=== PATIENT | male | born 1975 | race Caucasian/White ===

== ENCOUNTER 2017-01-10 16:48 | Emergency (ER) | payer SELFPAY ==
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
[2017-01-10 19:04] VITALS: BP 133/80
== END 2017-01-10 19:05 | disposition home or self-care (01) ==
LOC: UCEAST 16:48
DX: N39.0 Urinary tract infection, site not specified (principal); G82.20 Paraplegia, unspecified; Z87.891 Personal history of nicotine dependence; H91.90 Unspecified hearing loss, unspecified ear
CPT/HCPCS: 81003; 87077; 87086; 87186; 99211; G0463

== ENCOUNTER 2017-03-16 20:55 | Observation (INO) | payer OTHER ==
[2017-03-16] MEDS ORDERED: NS 0.9% 1000 ML* 1,000 ML IV SCH (23:30)
[2017-03-17 00:18] LABS: Hematocrit 37 % (42-52); Hemoglobin 12.4 g/dl (14.0-18.0); Mean Corpuscular HGB Conc 34 g/dl (31-36); Mean Corpuscular Hemoglobin 30 pg (27-31); Mean Corpuscular Volume 89 fL (80-94); Mean Platelet Volume 7 um3 (7.4-10.4); Red Blood Count 4.17 10^6/ul (4.0-5.4); Red Cell Distribution Width 16 % (10.5-15); White Blood Count 11.5 10^3/ul (3.5-10.8)
[2017-03-17 00:29] LABS: Albumin 3.9 g/dL (3.2-5.2); C Reactive Protein 37.64 mg/L (< 5.00); Calcium 9.2 mg/dL (8.6-10.3); EGFR African American 185.5 (>60); EGFR Non-African American 144.3 (>60); Globulin 3.2 g/dL (2-4); Potassium 3.6 mmol/L (3.5-5.0); Total Bilirubin 0.5 mg/dL (0.2-1.0); Total Protein 7.1 g/dL (6.4-8.9)
[2017-03-17] MEDS ORDERED: CYCLOBENZAPRINE 5 MG PO PRN (03:47)
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
[2017-03-17] MEDS ORDERED: Acetaminophen TAB* 325 MG PO PRN (04:03)
[2017-03-17] MEDS ORDERED: Ondansetron INJ* 2 MG/ML VIAL IV PRN (04:22)
[2017-03-17] MEDS ORDERED: CMCS:Melatonin (NF) 3 MG TAB PO PRN (04:22)
[2017-03-17] MEDS ORDERED: Albuterol 2.5 MG/3 ML NEB.SOL* (0.083%) INH PRN (04:22)
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
[2017-03-17] MEDS ORDERED: NS 0.9% 1000 ML* 1,000 ML IV SCH (04:30)
[2017-03-17] MEDS ORDERED: Cyclobenzaprine TAB* 10 MG PO PRN (05:55)
[2017-03-17] MEDS ORDERED: Omeprazole CAP* 20 MG PO SCH (06:00)
[2017-03-17] MEDS: metroNIDAZOLE TAB* 250 MG PO SCH ×2 (06:01→15:25)
[2017-03-17] MEDS: Heparin VIAL(*) 5000 UNITS/ML VIAL (FIVE THOUSAND) SUBCUT SCH ×2 (06:15→15:25)
--- NOTE | 2017-03-17 07:55 | RAD ---
INDICATION: Prior right femoral injury COMPARISON: Pelvis March 16, 2017; right hip fracture November 11, 2015 TECHNIQUE: Noncontrast axial source images were obtained from the iliac crests through the symphysis pubis. FINDINGS: The bony structures are osteopenic. There is an old fracture/deformity of the proximal right femur evidence of prior internal fixation. There is sclerosis and benign-appearing periosteal reactive change. Within the vastus musculature there is extensive soft tissue calcification with adjacent fluid. These findings extend from the iliopsoas musculature to the mid shaft of femur. The visualized intracranial structures are otherwise unremarkable. IMPRESSION: EVIDENCE OF PRIOR PROXIMAL RIGHT FEMORAL FRACTURE WITH INTRAMEDULLARY RODDING. ADJACENT BENIGN PERIOSTEAL REACTION. EXTENSIVE SOFT TISSUE CALCIFICATIONS AND FLUID INVOLVING THE VASTUS AND ILIOPSOAS MUSCULATURE. THIS IS OF UNKNOWN CHRONICITY AND SIGNIFICANCE BUT APPEARS NEW SINCE THE 2015 EXAMINATION.
[2017-03-17 09:48] LABS: Hematocrit 33 % (42-52); Mean Corpuscular HGB Conc 33 g/dl (31-36); Mean Corpuscular Hemoglobin 30 pg (27-31); Mean Corpuscular Volume 88 fL (80-94); Mean Platelet Volume 6 um3 (7.4-10.4); Red Blood Count 3.72 10^6/ul (4.0-5.4); Red Cell Distribution Width 15 % (10.5-15); White Blood Count 8.9 10^3/ul (3.5-10.8)
[2017-03-17 10:04] LABS: EGFR African American 223.1 (>60); EGFR Non-African American 173.5 (>60)
[2017-03-17 17:01] VITALS: BP 132/76
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
== END 2017-03-17 17:25 | disposition home or self-care (01) ==
LOC: ED 20:55 → MED 03-17 03:06 → INTOOBSV 03-17 03:06
PROVIDERS: ADMIT Hospitalist; ATTEND Internal Medicine
DX: L89.154 Pressure ulcer of sacral region, stage 4 (principal); S24.152A Other incomplete lesion at T2-T6 level of thoracic spinal cord, initial encounter; Z87.891 Personal history of nicotine dependence; M19.90 Unspecified osteoarthritis, unspecified site; A04.7 Enterocolitis due to Clostridium difficile; V29.9XXA Motorcycle rider (driver) (passenger) injured in unspecified traffic accident, initial encounter
CPT/HCPCS: 36415; 72192; 80053; 82565; 83605; 84520; 85025; 85610; 85730; 86140; 87040; 99285; A9270-GY; G0378; J1644

== ENCOUNTER 2017-07-25 12:32 | Observation (INO) | payer OTHER ==
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
[2017-07-25] MEDS: NS 0.9% 1000 ML*IV.FLUID IV ONE ×2 (13:26→15:49)
[2017-07-25] MEDS ORDERED: Clindamycin 600 MG IVPREMIX(* 600 MG/50 ML SDV IV ONE (13:41)
[2017-07-25 13:52] LABS: ABS Basophils 0 10^3/ul (0-0.2); ABS Eosinophils 0.1 10^3/ul (0-0.6); ABS Monocytes 0.6 10^3/ul (0-0.8); ABS Neutrophils 10.8 10^3/ul (1.5-7.7); ABS Nucleated RBC 0 10^3/ul; Eosinophil % 0.9 % (0-6); Hematocrit 31 % (42-52); Hemoglobin 10.5 g/dl (14.0-18.0); Lymphocyte % 8.3 % (25-47); Mean Corpuscular HGB Conc 34 g/dl (31-36); Mean Corpuscular Hemoglobin 30 pg (27-31); Mean Corpuscular Volume 88 fL (80-94); Mean Platelet Volume 6 um3 (7.4-10.4); Nucleated Red Blood Cells % 0; Platelet Count 465 10^3/ul (150-450); Red Blood Count 3.53 10^6/ul (4.0-5.4); Red Cell Distribution Width 15 % (10.5-15); White Blood Count 12.6 10^3/ul (3.5-10.8)
[2017-07-25 14:06] LABS: EGFR Non-African American 177.4 (>60)
[2017-07-25 14:14] LABS: INR 1.06 (0.77-1.02)
[2017-07-25 14:44] LABS: Urine Appearance Clear; Urine Blood Negative (Negative); Urine Color Yellow; Urine Ketones Negative (Negative); Urine Protein Negative (Negative); Urine Urobilinogen Negative (Negative)
[2017-07-25] MEDS ORDERED: Acetaminophen TAB* 325 MG PO PRN (15:22)
[2017-07-25] MEDS: Lactobacillus Acidophilu (GG)* 1 CAP CAP PO SCH (19:23)
[2017-07-25] MEDS: Heparin VIAL(*) 5000 UNITS/ML VIAL (FIVE THOUSAND) SUBCUT SCH (21:48)
[2017-07-25] MEDS: Clindamycin 600 MG IVPREMIX(* 600 MG/50 ML SDV IV SCH (23:27)
[2017-07-26] MEDS: Heparin VIAL(*) 5000 UNITS/ML VIAL (FIVE THOUSAND) SUBCUT SCH (06:13)
[2017-07-26 07:40] LABS: ABS Basophils 0 10^3/ul (0-0.2); ABS Eosinophils 0.2 10^3/ul (0-0.6); ABS Lymphocytes 1.2 10^3/ul (1.0-4.8); ABS Monocytes 0.4 10^3/ul (0-0.8); ABS Neutrophils 5.6 10^3/ul (1.5-7.7); ABS Nucleated RBC 0 10^3/ul; Hematocrit 30 % (42-52); Hemoglobin 10.1 g/dl (14.0-18.0); Lymphocyte % 15.7 % (25-47); Mean Corpuscular HGB Conc 34 g/dl (31-36); Mean Corpuscular Hemoglobin 30 pg (27-31); Mean Corpuscular Volume 88 fL (80-94); Mean Platelet Volume 6 um3 (7.4-10.4); Nucleated Red Blood Cells % 0.1; Platelet Count 434 10^3/ul (150-450); Red Blood Count 3.39 10^6/ul (4.0-5.4); Red Cell Distribution Width 15 % (10.5-15); White Blood Count 7.4 10^3/ul (3.5-10.8)
[2017-07-26 07:48] LABS: EGFR Non-African American 199.8 (>60)
[2017-07-26] MEDS: Lactobacillus Acidophilu (GG)* 1 CAP CAP PO SCH (09:00)
[2017-07-26] MEDS ORDERED: Multivitamins/Minerals TAB PO SCH (09:00)
[2017-07-26] MEDS ORDERED: Ascorbic Acid TAB* 500 MG PO SCH (09:00)
[2017-07-26] MEDS: Clindamycin 600 MG IVPREMIX(* 600 MG/50 ML SDV IV SCH (09:00)
[2017-07-26 10:25] VITALS: BP 114/61
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
== END 2017-07-26 12:40 | disposition home or self-care (01) ==
LOC: ED 12:32 → MED 15:15
PROVIDERS: ADMIT Internal Medicine; ATTEND Internal Medicine
DX: L03.116 Cellulitis of left lower limb (principal); R50.9 Fever, unspecified; Z87.891 Personal history of nicotine dependence; Z98.890 Other specified postprocedural states
CPT/HCPCS: 36415; 80048; 80053; 81003; 81015; 83605; 83735; 84484; 85025; 85610; 85730; 87040; 87086; 96365; 99284; A9270-GY; G0378; J1644

== ENCOUNTER 2017-10-09 16:42 | Inpatient (IN) | payer OTHER ==
[2017-10-09] MEDS ORDERED: Morphine VIAL* 4 MG/ML VIAL (1 ml vial) IV ONE ×3 (17:06→17:55)
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
[2017-10-09] MEDS ORDERED: Ondansetron INJ* 2 MG/ML VIAL IV ONE ×2 (17:54→19:34)
--- NOTE | 2017-10-09 18:13 | RAD ---
Indication: Fall out of wheelchair. 2 views of the right femur are reviewed. Diffuse osteopenia is noted. Evidence of old fracture with bony reaction in the proximal right femur is noted. There has been a prior intramedullary patricia with removal. There is wide zone of transition with permeative appearance of the proximal femur. Differential diagnosis includes chronic osteomyelitis versus heterotopic ossification. CT was performed on prior exam and appears similar since March 17, 2017. IMPRESSION: Prior intramedullary patricia removal. Extensive calcifications within the soft tissue surrounding the proximal right femur appears similar to that seen on March 17, 2017. 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
--- NOTE | 2017-10-09 18:14 | RAD ---
Indication: Bilateral hip pain 2 views of the right hip and 2 views of left hip are reviewed. There is amorphous calcification surrounding the proximal right femur and right hip joint. This was previously identified on prior CT dated March 17, 2017. This appears to be similar. Differential diagnosis includes heterotopic ossification, chronic osteomyelitis or osteosarcoma. Pelvic ring is intact. The left hip is otherwise unremarkable. IMPRESSION: Amorphous calcification in the proximal right femur heterogeneous in density which may represent chronic osteomyelitis, heterotopic ossification or osteosarcoma. The left hip is otherwise unremarkable.
--- NOTE | 2017-10-09 18:15 | RAD ---
Indication: Left hip fracture. 4 views of the left femur demonstrates a spiral fracture through the distal femur. There is posterior displacement and medial displacement approximately one half shafts width. IMPRESSION: Oblique fracture through the distal metadiaphysis of the femur with medial and posterior displacement of the distal fracture fragment.
--- NOTE | 2017-10-09 18:18 | RAD ---
Indication: Left leg injury. 2 views of the left lower leg demonstrates no fracture of the tibia or fibula. The distal femoral fracture is again identified. IMPRESSION: No fracture of the tibia or fibula is noted.
--- NOTE | 2017-10-09 18:19 | RAD ---
Indication: Right leg injury. 2 views of the right leg demonstrates fracture of the proximal tibia metadiaphysis. Overriding of the fracture fragment is noted. IMPRESSION: Fracture of the right proximal tibial metadiaphysis.
[2017-10-09] MEDS ORDERED: HYDROmorphone INJ* 1 MG/ML CARPUJECT SYRINGE IV SLOW PU ONE (19:24)
[2017-10-09] MEDS ORDERED: HYDROmorphone INJ* 2 MG/ML CARPUJECT SYRINGE ONE (19:37)
[2017-10-09] MEDS ORDERED: HYDROmorphone INJ* 2 MG/ML CARPUJECT SYRINGE IV SLOW PU ONE (19:41)
[2017-10-09 20:26] LABS: ABS Basophils 0 10^3/ul (0-0.2); ABS Eosinophils 0 10^3/ul (0-0.6); ABS Lymphocytes 0.7 10^3/ul (1.0-4.8); ABS Monocytes 0.9 10^3/ul (0-0.8); ABS Nucleated RBC 0 10^3/ul; Eosinophil % 0.1 % (0-6); Hematocrit 37 % (42-52); Hemoglobin 12.5 g/dl (14.0-18.0); Lymphocyte % 4.5 % (25-47); Mean Corpuscular HGB Conc 34 g/dl (31-36); Mean Corpuscular Hemoglobin 31 pg (27-31); Mean Corpuscular Volume 90 fL (80-94); Mean Platelet Volume 7.2 um3 (7.4-10.4); Nucleated Red Blood Cells % 0.1; Platelet Count 281 10^3/ul (150-450); Red Blood Count 4.09 10^6/ul (4.0-5.4); Red Cell Distribution Width 16 % (10.5-15); White Blood Count 15.7 10^3/ul (3.5-10.8)
[2017-10-09 20:33] LABS: INR 0.95 (0.77-1.02)
[2017-10-09] MEDS ORDERED: Magnesium Hydroxide LIQ* 30 ML UDC PO PRN (20:36)
[2017-10-09 20:41] LABS: EGFR Non-African American 128.9 (>60)
[2017-10-09 21:15] LABS: Urine Appearance Cloudy; Urine Blood Negative (Negative); Urine Color Yellow; Urine Ketones 2+ (Negative); Urine Protein 1+(30 mg/dL) (Negative); Urine Specific Gravity 1.024 (1.010-1.030); Urine Urobilinogen Negative (Negative)
[2017-10-09] MEDS ORDERED: NS 0.9% 1000 ML* 1,000 ML IV SCH (21:15)
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
--- NOTE | 2017-10-09 21:27 | RAD ---
Indication: Chest pain. Single frontal view of the chest performed at 2059 hours was reviewed. Comparison is made with previous exam dated October 16, 2010. No mediastinal shift is noted. Heart is of normal size and configuration. There may be some minimal atelectasis in the left costophrenic angle. There is hardware in the thoracic spine from prior surgery.. IMPRESSION: LIKELY ATELECTASIS IN THE LEFT BASE VERSUS EARLY INFILTRATE. HARDWARE IN THE THORACIC SPINE.
[2017-10-09] MEDS: Docusate CAP* 100 MG PO SCH (22:10)
[2017-10-09] MEDS: HYDROmorphone INJ* 2 MG/ML CARPUJECT SYRINGE IV SLOW PU PRN (22:26)
[2017-10-09] MEDS ORDERED: Ondansetron INJ* 2 MG/ML VIAL IV PRN (22:26)
[2017-10-09] MEDS: Oxybutynin TAB* 5 MG PO SCH (22:32)
[2017-10-09] MEDS: Enoxaparin(*) 40 MG/0.4 ML SYR SUBCUT SCH (22:32)
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
[2017-10-10] MEDS: HYDROmorphone INJ* 2 MG/ML CARPUJECT SYRINGE IV SLOW PU PRN ×5 (02:52→20:07)
[2017-10-10] MEDS: Diazepam TAB(*) 5 MG PO PRN ×3 (05:40→22:27)
[2017-10-10] MEDS: Polyethylene Glycol 3350* 17 GM PACKET PO SCH (07:28)
[2017-10-10] MEDS: Docusate CAP* 100 MG PO SCH ×2 (07:28→22:06)
[2017-10-10] MEDS: Ascorbic Acid TAB* 500 MG PO SCH (07:29)
[2017-10-10] MEDS: Oxybutynin TAB* 5 MG PO SCH ×2 (07:29→22:06)
[2017-10-10 10:09] LABS: ABS Basophils 0 10^3/ul (0-0.2); ABS Eosinophils 0 10^3/ul (0-0.6); ABS Monocytes 0.7 10^3/ul (0-0.8); ABS Nucleated RBC 0 10^3/ul; Eosinophil % 0.1 % (0-6); Hematocrit 29 % (42-52); Lymphocyte % 11.6 % (25-47); Mean Corpuscular HGB Conc 34 g/dl (31-36); Mean Corpuscular Hemoglobin 31 pg (27-31); Mean Corpuscular Volume 90 fL (80-94); Mean Platelet Volume 7.6 um3 (7.4-10.4); Nucleated Red Blood Cells % 0; Platelet Count 255 10^3/ul (150-450); Red Blood Count 3.25 10^6/ul (4.0-5.4); Red Cell Distribution Width 15 % (10.5-15); White Blood Count 8.8 10^3/ul (3.5-10.8)
[2017-10-10 10:18] LABS: EGFR Non-African American 176.6 (>60)
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
--- NOTE | 2017-10-10 13:29 | PN ---
Progress Note - Progress Note Date of Service: 10/10/17 SOAP: Subjective: [] Patient seen at bedside with family present. Pain is rated as 7/10 which he considers tolerable. With spasm pain may reach 10/10. Patient is paraplegic though has some sensation, namely pain, of lower extremities. Patient would like to further discuss his treatment options and reconsider surgical intervention. Objective: [] Vital Signs Temp 99.5 F 10/10/17 13:34 Pulse 104 10/10/17 13:34 Resp 18 10/10/17 13:41 BP 112/65 10/10/17 13:34 Pulse Ox 93 10/10/17 13:34 Intake & Output 10/09/17 10/10/17 10/10/17 18:59 06:59 18:59 Intake Total 2240 1210 Output Total 100 950 Balance 2140 260 Weight 219 lb 219 lb Intake: IV Fluids 990 NS (0.9%) 990 IVPB 50 rocephin 50 Oral 1200 1210 Output: Reyes 100 950 Other: # Bowel Movements 0 Laboratory Last Values WBC 8.8 10^3/ul (3.5-10.8) 10/10/17 08:25 RBC 3.25 10^6/ul (4.0-5.4) L 10/10/17 08:25 Hgb 10.0 g/dl (14.0-18.0) L 10/10/17 08:25 Hct 29 % (42-52) L 10/10/17 08:25 MCV 90 fL (80-94) 10/10/17 08:25 MCH 31 pg (27-31) 10/10/17 08:25 MCHC 34 g/dl (31-36) 10/10/17 08:25 RDW 15 % (10.5-15) 10/10/17 08:25 Plt Count 255 10^3/ul (150-450) 10/10/17 08:25 MPV 7.6 um3 (7.4-10.4) 10/10/17 08:25 Neut % (Auto) 80.0 % (38-83) 10/10/17 08:25 Lymph % (Auto) 11.6 % (25-47) L 10/10/17 08:25 Bracken % (Auto) 8.1 % (0-7) H 10/10/17 08:25 Eos % (Auto) 0.1 % (0-6) 10/10/17 08:25 Baso % (Auto) 0.2 % (0-2) 10/10/17 08:25 Absolute Neuts (auto) 7.0 10^3/ul (1.5-7.7) 10/10/17 08:25 Absolute Lymphs (auto) 1.0 10^3/ul (1.0-4.8) 10/10/17 08:25 Absolute Monos (auto) 0.7 10^3/ul (0-0.8) 10/10/17 08:25 Absolute Eos (auto) 0 10^3/ul (0-0.6) 10/10/17 08:25 Absolute Basos (auto) 0 10^3/ul (0-0.2) 10/10/17 08:25 Absolute Nucleated RBC 0 10^3/ul 10/10/17 08:25 Nucleated RBC % 0 10/10/17 08:25 INR (Anticoag Therapy) 0.95 (0.77-1.02) 10/09/17 19:22 APTT 29.8 seconds (26.0-36.3) 10/09/17 19:22 Sodium 134 mmol/L (139-145) L 10/10/17 08:30 Potassium 4.1 mmol/L (3.5-5.0) 10/10/17 08:30 Chloride 103 mmol/L (101-111) 10/10/17 08:30 Carbon Dioxide 25 mmol/L (22-32) 10/10/17 08:30 Anion Gap 6 mmol/L (2-11) 10/10/17 08:30 BUN 17 mg/dL (6-24) 10/10/17 08:30 Creatinine 0.51 mg/dL (0.67-1.17) L 10/10/17 08:30 Est GFR ( Amer) 227.1 (>60) 10/10/17 08:30 Est GFR (Non-Af Amer) 176.6 (>60) 10/10/17 08:30 BUN/Creatinine Ratio 33.3 (8-20) H 10/10/17 08:30 Glucose 138 mg/dL (70-100) H 10/10/17 08:30 Lactic Acid 1.7 mmol/L (0.5-2.0) 10/09/17 19:22 Calcium 8.6 mg/dL (8.6-10.3) 10/10/17 08:30 Total Bilirubin 0.50 mg/dL (0.2-1.0) 10/09/17 19:22 AST 18 U/L (13-39) 10/09/17 19:22 ALT 26 U/L (7-52) 10/09/17 19:22 Alkaline Phosphatase 156 U/L (34-104) H 10/09/17 19:22 Total Creatine Kinase 268 U/L (10-223) H 10/10/17 08:30 C-Reactive Protein 9.45 mg/L (< 5.00) H 10/09/17 19:22 Total Protein 6.9 g/dL (6.4-8.9) 10/09/17 19:22 Albumin 4.0 g/dL (3.2-5.2) 10/09/17 19: Globulin 2.9 g/dL (2-4) 10/09/17 19:22 Albumin/Globulin Ratio 1.4 (1-3) 10/09/17 19:22 Procalcitonin < 0.1 ng/mL (<0.6) 10/09/17 19:22 Urine Color Yellow 10/09/17 20:50 Urine Appearance Cloudy 10/09/17 20:50 Urine pH 5.0 (5-9) 10/09/17 20:50 Ur Specific Orange 1.024 (1.010-1.030) 10/09/17 20:50 Urine Protein 1+(30 mg/dl) (Negative) A 10/09/17 20:50 Urine Ketones 2+ (Negative) A 10/09/17 20:50 Urine Blood Negative (Negative) 10/09/17 20:50 Urine Nitrate Negative (Negative) 10/09/17 20:50 Urine Bilirubin Negative (Negative) 10/09/17 20:50 Urine Urobilinogen Negative (Negative) 10/09/17 20:50 Ur Leukocyte Esterase Negative (Negative) 10/09/17 20:50 Urine WBC (Auto) 3+(>20/hpf) (Absent) A 10/09/17 20:50 Urine RBC (Auto) 3+(>10/hpf) (Absent) A 10/09/17 20:50 Ur Squamous Epith Cells Present (Absent) A 10/09/17 20:50 Urine Bacteria 1+ (Absent) A 10/09/17 20:50 Urine Glucose Negative (Negative) 10/09/17 20:50 Blood Type A Positive 10/09/17 19:22 Antibody Screen Negative 10/09/17 19:22 General: Well appearing, NAD. Laying comfortably in bed Skin: bilateral lower extremities without skin breakdown, lacerations, abrasions or open lesions. Vasc: 1+ DP b/l LE. MSK: BL LE without voluntary motion. Some swelling of left distal femur, right proximal tibia. Assessment: []Right proximal tibia fracture Left distal femur fracture Plan: []Bilateral hinged knee braces with free ROM Pain and spasm control DVT prophylaxis with lovenox Dr. Menon discussed treatment options with patient, he will be transferred to [facility] though no bed available yet. Imaging records requested, will be ready for molded goods spot picker this evening.
[2017-10-10] MEDS: Enoxaparin(*) 40 MG/0.4 ML SYR SUBCUT SCH (22:05)
[2017-10-10] MEDS: cefTRIAXone VIAL(*) 1,000 MG in NS 0.9% 50 ML* 50 ML IVPB SCH ×3 (22:31)
[2017-10-11] MEDS: HYDROmorphone INJ* 2 MG/ML CARPUJECT SYRINGE IV SLOW PU PRN ×6 (00:14→22:00)
[2017-10-11] MEDS: Acetaminophen TAB* 325 MG PO PRN (04:10)
[2017-10-11] MEDS: Docusate CAP* 100 MG PO SCH ×2 (08:28→21:20)
[2017-10-11] MEDS: Ascorbic Acid TAB* 500 MG PO SCH (08:28)
[2017-10-11] MEDS: Diazepam TAB(*) 5 MG PO PRN ×2 (08:28→18:06)
[2017-10-11] MEDS: Oxybutynin TAB* 5 MG PO SCH ×2 (08:28→21:20)
[2017-10-11] MEDS: Polyethylene Glycol 3350* 17 GM PACKET PO SCH (08:29)
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
--- NOTE | 2017-10-11 17:01 | PN ---
Progress Note - Progress Note Date of Service: 10/11/17 Note: I have discussed the care of Mr. Mendoza with Dr. Menon. I will plan to take of Mr. Mendoza from an orthopedics standpoint. I will meet him tomorrow morning and plan for potential surgery Sunday.
[2017-10-11] MEDS ORDERED: NS 0.9% 500 ML* 500 ML IV ONE (19:14)
[2017-10-11] MEDS ORDERED: oxyCODONE/Acetamin 5/325 MG* TAB PO PRN (19:15)
[2017-10-11 20:14] LABS: ABS Basophils 0 10^3/ul (0-0.2); ABS Eosinophils 0.1 10^3/ul (0-0.6); ABS Monocytes 0.7 10^3/ul (0-0.8); ABS Neutrophils 4.3 10^3/ul (1.5-7.7); ABS Nucleated RBC 0 10^3/ul; Eosinophil % 1.1 % (0-6); Hematocrit 24 % (42-52); Hemoglobin 8.2 g/dl (14.0-18.0); Lymphocyte % 16.8 % (25-47); Mean Corpuscular HGB Conc 35 g/dl (31-36); Mean Corpuscular Hemoglobin 31 pg (27-31); Mean Corpuscular Volume 89 fL (80-94); Nucleated Red Blood Cells % 0; Platelet Count 166 10^3/ul (150-450); Red Blood Count 2.63 10^6/ul (4.0-5.4); Red Cell Distribution Width 15 % (10.5-15); White Blood Count 6.1 10^3/ul (3.5-10.8)
[2017-10-11 20:31] LABS: EGFR Non-African American 184.9 (>60)
[2017-10-11] MEDS: NS 0.9% 1000 ML* 1,000 ML IV SCH (20:34)
[2017-10-11] MEDS: Enoxaparin(*) 40 MG/0.4 ML SYR SUBCUT SCH (21:52)
[2017-10-11] MEDS: Baclofen TAB* 10 MG PO SCH (22:13)
--- NOTE | 2017-10-11 22:46 | CONS ---
AMENDED REPORT NOW INCLUDES DATE OF CONSULT - ESIGNED BEFORE ADJUSTMENT PROGRESS NOTE: DATE OF CONSULT: 10/11/17 TIME: 2199. HISTORY OF PRESENT ILLNESS: Chris is examined by me and Solitario Cross this evening. I had a phone conversation earlier with the family that they were concerned about his increasing spasms and poor pain control. The mother is also concerned with possible blood clots at a high risk and also the delay in him having surgical fixation of his left femur. This afternoon, I visited Mr. Mendoza and he was quite comfortable. This would have been around 1 o'clock in the afternoon. He did not have any significant spasms at that time and was comfortable in bed and seemed to be content either waiting for a bed transfer to [facility] or acceptance to the orthopedic service at [facility]. I had spoken with Dr. Bartlett there who had accepted him, but there has been to date no bed available. I called the [facility] transfer nurse again this evening at around 9 o'clock. I spoke to the nurse steel fabricating supervisor at [facility]. They told me that there has been no bed available so far for Mr. Mendoza and transfer , but that they would keep him on the waiting list. They had no idea how soon he could be transferred to [facility]. I also spoke with Dr. Bartlett again this evening from the trauma service there and he is happy to do the surgery. He has formally accepted him to his service, but that he has no control over the bed availability. There appears to be 2 options for one of our staff physicians to do the left femur stabilization. Dr. Kelley has offered to do this on Sunday and I reached Dr. Gardner this evening, who is a skilled hip and knee surgeon, and he has agreed to speak with the family tomorrow morning, Sunday, before his surgical schedule and if amenable, then he would attempt to fix the femur tomorrow afternoon. During the interview and examination with the family and Mr. Mendoza this evening with Solitario Cross as well, we discussed short-term pain and spasm control. They state that Mr. Mendoza occasionally will "pass out" when his spasms become severe. This has not been witnessed by any of our nursing staff to our knowledge and this is occurred before on a not infrequent basis even before the leg injuries. Solitario Cross will be dictating another note describing his interaction with the neuro team [facility] to see if we can help Mr. Mendoza overnight with a better medication regimen to try to control the spasm pain. The family seems to be at this time amenable to having our team fix the femur fracture tomorrow as we still do not know when [facility] can arrange a transfer. Mr. Mendoza will be n.p.o. after midnight and we will hold his Lovenox after 9 p.m. franck. [id number]/[facility] #: [id number] ORIGINAL ESIGN DATE/TIME: 10/12/17713 [facility]
[2017-10-11] MEDS: cefTRIAXone VIAL(*) 1,000 MG in NS 0.9% 50 ML* 50 ML IVPB SCH (23:04)
[2017-10-12] MEDS: HYDROmorphone INJ* 2 MG/ML CARPUJECT SYRINGE IV SLOW PU PRN ×4 (05:39→21:59)
[2017-10-12] MEDS: Ascorbic Acid TAB* 500 MG PO SCH (08:16)
[2017-10-12] MEDS: Oxybutynin TAB* 5 MG PO SCH ×2 (08:16→21:58)
[2017-10-12] MEDS: Docusate CAP* 100 MG PO SCH ×2 (08:16→21:58)
[2017-10-12] MEDS: Polyethylene Glycol 3350* 17 GM PACKET PO SCH (08:16)
[2017-10-12] MEDS: Baclofen TAB* 10 MG PO SCH ×3 (08:17→21:58)
[2017-10-12] MEDS: Acetaminophen TAB* 325 MG PO PRN (08:23)
[2017-10-12] MEDS: Diazepam TAB(*) 5 MG PO PRN (08:23)
--- NOTE | 2017-10-12 09:54 | PN ---
Progress Note - Progress Note Date of Service: 10/12/17 Note: I have met with Chris and his this morning. They would like to have the surgery done here. His vitals and labs have been stable. His most recent H/H is 8.2/24. He has an appropriate amount of swelling. No concern for compartment syndrome. We keep him npo and plan for surgery later this afternoon for open reduction internal fixation of the left distal femur and the right tibial plateau. Dr. Gonzalez and I are coordinating this and will plan for surgery later today.
[2017-10-12] MEDS ORDERED: Naloxone* 0.4 MG/ML 1 ML VIAL IV PRN ×2 (10:31→18:09)
[2017-10-12] MEDS: NS 0.9% 1000 ML* 1,000 ML IV SCH (11:33)
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
[2017-10-12] MEDS ORDERED: ceFAZolin 2 GM PREMIX (*) 2 GM/50 ML BAG IVPB ONE (15:17)
[2017-10-12] MEDS ORDERED: NitroPRUSSide* 25 MG/ML 2 ML VIAL IVPB ONE (15:23)
[2017-10-12] MEDS ORDERED: Ondansetron INJ* 2 MG/ML VIAL ONE (15:38)
[2017-10-12] MEDS ORDERED: Propofol* 10 MG/ML 20 ML BTL IV PUSH ONE (15:38)
[2017-10-12] MEDS ORDERED: Dexamethasone IV* 4 MG/ML 1 ML (4 MG) ONE (15:38)
[2017-10-12] MEDS ORDERED: fentaNYL* 50 MCG/ML 5 ML VIAL (250 MCG VIAL) ONE (15:38)
[2017-10-12] MEDS ORDERED: Midazolam* 1 MG/ML 10 ML VIAL (10 MG) ONE (15:38)
[2017-10-12] MEDS ORDERED: KETAMINE HCL* 50 MG/ML 10 ML VIAL ONE (15:38)
[2017-10-12] MEDS ORDERED: Rocuronium* 10 MG/ML VIAL ONE (15:38)
[2017-10-12] MEDS ORDERED: Lidocaine 2% PF * 5 ML VIAL ONE (15:38)
[2017-10-12] MEDS ORDERED: HYDROmorphone INJ* 2 MG/ML CARPUJECT SYRINGE ONE (15:54)
[2017-10-12] MEDS ORDERED: Scopolamine 1.5 mg* PATCH ONE (15:54)
[2017-10-12] MEDS ORDERED: Bupivacaine 0.25% SDV* 30 ML ONE ×2 (16:54→18:46)
[2017-10-12] MEDS ORDERED: HYDROmorphone INJ* 1 MG/ML CARPUJECT SYRINGE IV PRN (18:09)
[2017-10-12] MEDS ORDERED: fentaNYL* 50 MCG/ML 2 ML VIAL (100 MCG VIAL) IV PRN (18:09)
[2017-10-12] MEDS ORDERED: Ondansetron INJ* 2 MG/ML VIAL IV PRN (18:09)
[2017-10-12] MEDS ORDERED: Neostigmine Methylsulfate* 1 MG/ML 10 ML VIAL (1 mg/ml) ONE (18:51)
[2017-10-12] MEDS ORDERED: Glycopyrrolate IV* 0.2 MG/ML 1 ML VIAL ONE (18:51)
[2017-10-12] MEDS ORDERED: diPHENhydraMINE PO* 25 MG PO PRN (19:21)
[2017-10-12] MEDS ORDERED: Magnesium Hydroxide LIQ* 30 ML UDC PO PRN (19:21)
[2017-10-12] MEDS ORDERED: Morphine VIAL* 4 MG/ML VIAL (1 ml vial) IV PRN (19:21)
[2017-10-12] MEDS: Magnesium Hydroxide LIQ* 30 ML UDC PO SCH (21:58)
[2017-10-12] MEDS: Enoxaparin(*) 40 MG/0.4 ML SYR SUBCUT SCH (21:59)
--- NOTE | 2017-10-12 22:07 | RAD ---
CPT II Codes: G9500 INDICATION: Right tibial plateau fracture Approximately 5.7 seconds of fluoroscopy time was used. Fluoroscopic services provided for referring physician. 2 spot images demonstrates reduction of the right proximal tibial fracture. IMPRESSION: Fluoroscopic services provided for referring physician for reduction.
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
[2017-10-12] MEDS: cefTRIAXone VIAL(*) 1,000 MG in NS 0.9% 50 ML* 50 ML IVPB SCH (23:09)
[2017-10-13] MEDS: ceFAZolin 1 GM in Dextrose (*) 1 GM/50 ML BAG IVPB SCH ×3 (00:07→16:04)
--- NOTE | 2017-10-13 01:16 | PN ---
Progress Note - Progress Note Date of Service: 10/13/17 Note: Mr Mendoza was seen in PACU. He was still quite sedated, but arousable and recovering well. I re-evaluated him at 0100 to find him sitting up in bed awake , alert, & watching television. He reported soreness at the op site, but did not require analgesics. He was in good spirits and stated he felt fine. No issues identified. Continue current management.
[2017-10-13] MEDS: HYDROmorphone INJ* 2 MG/ML CARPUJECT SYRINGE IV SLOW PU PRN ×3 (02:14→08:58)
[2017-10-13] MEDS: Diazepam TAB(*) 5 MG PO PRN (02:14)
[2017-10-13 05:40] LABS: Hematocrit 22 % (42-52); Hemoglobin 7.5 g/dl (14.0-18.0); Platelet Count 192 10^3/ul (150-450)
[2017-10-13 05:54] LABS: EGFR Non-African American 220.9 (>60)
[2017-10-13] MEDS: Magnesium Hydroxide LIQ* 30 ML UDC PO SCH ×2 (09:03→21:19)
[2017-10-13] MEDS: Ascorbic Acid TAB* 500 MG PO SCH (09:03)
[2017-10-13] MEDS: Oxybutynin TAB* 5 MG PO SCH ×2 (09:03→21:17)
[2017-10-13] MEDS: Docusate CAP* 100 MG PO SCH ×2 (09:03→21:17)
[2017-10-13] MEDS: Baclofen TAB* 10 MG PO SCH ×3 (09:03→21:16)
[2017-10-13] MEDS: Polyethylene Glycol 3350* 17 GM PACKET PO SCH (09:04)
[2017-10-13] MEDS ORDERED: Ondansetron ODT TAB* 4 MG SL PRN (10:22)
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
[2017-10-13] MEDS: oxyCODONE/Acetamin 5/325 MG* TAB PO PRN ×3 (10:38→21:17)
--- NOTE | 2017-10-13 12:54 | PN ---
Progress Note - Progress Note Date of Service: 10/13/17 SOAP: Subjective: Pt lying comfortably in bed. No complaint of pain. Denies F/C Objective: Dressing C/D/I LLE, ROM brace intact RLE locked in ext. DP pulses 2+ Vital Signs: Temp Pulse Resp BP Pulse Ox 97.8 F 99 12 104/53 98 10/13/17 11:53 10/13/17 11:53 10/13/17 11:53 10/13/17 11:53 10/13/17 11:53 Laboratory Last Values WBC 6.1 10^3/ul (3.5-10.8) 10/11/17 20:03 RBC 2.63 10^6/ul (4.0-5.4) L 10/11/17 20:03 Hgb 7.5 g/dl (14.0-18.0) L 10/13/17 05:14 Hct 22 % (42-52) L 10/13/17 05:14 MCV 89 fL (80-94) 10/11/17 20:03 MCH 31 pg (27-31) 10/11/17 20:03 MCHC 35 g/dl (31-36) 10/11/17 20:03 RDW 15 % (10.5-15) 10/11/17 20:03 Plt Count 192 10^3/ul (150-450) 10/13/17 05:14 MPV 7.0 um3 (7.4-10.4) L 10/13/17 05:14 Neut % (Auto) 70.8 % (38-83) 10/11/17 20:03 Lymph % (Auto) 16.8 % (25-47) L 10/11/17 20:03 [place] % (Auto) 10.8 % (0-7) H 10/11/17 20:03 Eos % (Auto) 1.1 % (0-6) 10/11/17 20:03 Baso % (Auto) 0.5 % (0-2) 10/11/17 20:03 Absolute Neuts (auto) 4.3 10^3/ul (1.5-7.7) 10/11/17 20:03 Absolute Lymphs (auto) 1.0 10^3/ul (1.0-4.8) 10/11/17 20:03 Absolute Monos (auto) 0.7 10^3/ul (0-0.8) 10/11/17 20:03 Absolute Eos (auto) 0.1 10^3/ul (0-0.6) 10/11/17 20:03 Absolute Basos (auto) 0 10^3/ul (0-0.2) 10/11/17 20:03 Absolute Nucleated RBC 0 10^3/ul 10/11/17 20:03 Nucleated RBC % 0 10/11/17 20:03 INR (Anticoag Therapy) 0.95 (0.77-1.02) 10/09/17 19:22 APTT 29.8 seconds (26.0-36.3) 10/09/17 19:22 Sodium 138 mmol/L (139-145) L 10/13/17 05:14 Potassium 4.0 mmol/L (3.5-5.0) 10/13/17 05:14 Chloride 107 mmol/L (101-111) 10/13/17 05:14 Carbon Dioxide 24 mmol/L (22-32) 10/13/17 05:14 Anion Gap 7 mmol/L (2-11) 10/13/17 05:14 BUN 7 mg/dL (6-24) 10/13/17 05:14 Creatinine 0.42 mg/dL (0.67-1.17) L 10/13/17 05:14 Est GFR ( Amer) 284.1 (>60) 10/13/17 05:14 Est GFR (Non-Af Amer) 220.9 (>60) 10/13/17 05:14 BUN/Creatinine Ratio 16.7 (8-20) 10/13/17 05:14 Glucose 130 mg/dL (70-100) H 10/13/17 05:14 Lactic Acid 1.7 mmol/L (0.5-2.0) 10/09/17 19:22 Calcium 7.6 mg/dL (8.6-10.3) L 10/13/17 05:14 Total Bilirubin 0.70 mg/dL (0.2-1.0) 10/11/17 20:03 AST 14 U/L (13-39) 10/11/17 20:03 ALT 12 U/L (7-52) 10/11/17 20:03 Alkaline Phosphatase 97 U/L (34-104) 10/11/17 20:03 Total Creatine Kinase 173 U/L (10-223) 10/13/17 10:56 C-Reactive Protein 9.45 mg/L (< 5.00) H 10/09/17 19:22 Total Protein 5.3 g/dL (6.4-8.9) L 10/11/17 20:03 Albumin 3.0 g/dL (3.2-5.2) L 10/11/17 20:03 Globulin 2.3 g/dL (2-4) 10/11/17 20:03 Albumin/Globulin Ratio 1.3 (1-3) 10/11/17 20:03 Procalcitonin < 0.1 ng/mL (<0.6) 10/09/17 19:22 Urine Color Yellow 10/09/17 20:50 Urine Appearance Cloudy 10/09/17 20:50 Urine pH 5.0 (5-9) 10/09/17 20:50 Ur Specific [place] 1.024 (1.010-1.030) 10/09/17 20:50 Urine Protein 1+(30 mg/dl) (Negative) A 10/09/17 20:50 Urine Ketones 2+ (Negative) A 10/09/17 20:50 Urine Blood Negative (Negative) 10/09/17 20:50 Urine Nitrate Negative (Negative) 10/09/17 20:50 Urine Bilirubin Negative (Negative) 10/09/17 20:50 Urine Urobilinogen Negative (Negative) 10/09/17 20:50 Ur Leukocyte Esterase Negative (Negative) 10/09/17 20:50 Urine WBC (Auto) 3+(>20/hpf) (Absent) A 10/09/17 20:50 Urine RBC (Auto) 3+(>10/hpf) (Absent) A 10/09/17 20:50 Ur Squamous Epith Cells Present (Absent) A 10/09/17 20:50 Urine Bacteria 1+ (Absent) A 10/09/17 20:50 Urine Glucose Negative (Negative) 10/09/17 20:50 Blood Type A Positive 10/09/17 19:22 Antibody Screen Negative 10/09/17 19:22 Crossmatch See Detail 10/09/17 19:22 Assessment: 42 yo male s/p ORIF left distal femur fx POD #1 Plan: OOB for tranfers PT/OT - NWB B/L lower extremities DVT prophylaxis - Lovenox Will likely need STR
--- NOTE | 2017-10-13 12:59 | PN ---
Progress Note - Progress Note Date of Service: 10/13/17 Note: Augustin was seen on rounds this morning. He's doing much better. The spasms have largely resolved. Hes not having any pain. The brace on the right leg is working good. AVSS Dressing c/d/i H/H: 7.5, Cr 0.42, CK 173 A/P: POD#1 s/p ORIF left distal femur fracture Plan is to treat right tibia fracture closed in the long leg brace which is locked at 20-30 degrees of flexion, May bend left knee with PT. May be OOB and in chair as tolerated Trapeze for bed. Mobilize to extent possible. Discharge planning consulted.
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
[2017-10-13] MEDS: Enoxaparin(*) 40 MG/0.4 ML SYR SUBCUT SCH (21:20)
[2017-10-14] MEDS: oxyCODONE/Acetamin 5/325 MG* TAB PO PRN ×5 (03:39→21:29)
[2017-10-14 06:07] LABS: Hematocrit 20 % (42-52); Hemoglobin 7.1 g/dl (14.0-18.0); Mean Platelet Volume 6.9 um3 (7.4-10.4); Platelet Count 241 10^3/ul (150-450)
[2017-10-14] MEDS: Magnesium Hydroxide LIQ* 30 ML UDC PO SCH ×2 (09:37→21:31)
[2017-10-14] MEDS: Polyethylene Glycol 3350* 17 GM PACKET PO SCH (09:37)
[2017-10-14] MEDS: Docusate CAP* 100 MG PO SCH ×2 (09:37→21:31)
[2017-10-14] MEDS: Baclofen TAB* 10 MG PO SCH ×3 (09:37→21:31)
[2017-10-14] MEDS: Oxybutynin TAB* 5 MG PO SCH ×2 (09:38→21:30)
[2017-10-14] MEDS: Ascorbic Acid TAB* 500 MG PO SCH (09:38)
--- NOTE | 2017-10-14 11:19 | PN ---
Progress Note - Progress Note Date of Service: 10/14/17 Note: Stable. Feeling okay. HR 115, vitals otherwise stable Dressings are c/d/i A/P: POD#2 Agrees with 2 units PRBC. OOB with lift if at all possible. Trapeze when in bed. Pressure sore prophylaxis PT is okay to work on motion of Left knee. R knee in brace for now.
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
[2017-10-14] MEDS: Enoxaparin(*) 40 MG/0.4 ML SYR SUBCUT SCH (21:33)
[2017-10-15] MEDS: oxyCODONE/Acetamin 5/325 MG* TAB PO PRN ×2 (01:31→08:02)
[2017-10-15 05:56] LABS: ABS Basophils 0 10^3/ul (0-0.2); ABS Eosinophils 0.1 10^3/ul (0-0.6); ABS Lymphocytes 1.3 10^3/ul (1.0-4.8); ABS Monocytes 0.6 10^3/ul (0-0.8); ABS Neutrophils 4.5 10^3/ul (1.5-7.7); ABS Nucleated RBC 0 10^3/ul; Eosinophil % 1.7 % (0-6); Hematocrit 24 % (42-52); Hemoglobin 8.2 g/dl (14.0-18.0); Lymphocyte % 19.6 % (25-47); Mean Corpuscular HGB Conc 35 g/dl (31-36); Mean Corpuscular Hemoglobin 31 pg (27-31); Mean Corpuscular Volume 89 fL (80-94); Mean Platelet Volume 6.5 um3 (7.4-10.4); Nucleated Red Blood Cells % 0; Platelet Count 244 10^3/ul (150-450); Red Blood Count 2.64 10^6/ul (4.0-5.4); Red Cell Distribution Width 15 % (10.5-15); White Blood Count 6.5 10^3/ul (3.5-10.8)
[2017-10-15] MEDS: Ascorbic Acid TAB* 500 MG PO SCH (08:02)
[2017-10-15] MEDS: Polyethylene Glycol 3350* 17 GM PACKET PO SCH (08:02)
[2017-10-15] MEDS: Oxybutynin TAB* 5 MG PO SCH ×2 (08:02→20:51)
[2017-10-15] MEDS: Magnesium Hydroxide LIQ* 30 ML UDC PO SCH ×2 (08:03→21:07)
[2017-10-15] MEDS: Docusate CAP* 100 MG PO SCH ×2 (08:03→20:51)
[2017-10-15] MEDS: Baclofen TAB* 10 MG PO SCH ×3 (11:40→20:56)
--- NOTE | 2017-10-15 14:01 | PN ---
Progress Note - Progress Note Date of Service: 10/15/17 SOAP: Subjective: []Patient seen at bedside. He is having burning pain of both legs, much of which he has at baseline. He feels nauseous, reportedly due to taking percocet. Denies chest pain, shortness of breath, dizziness. Objective: [] Vital Signs Temp 98 F 10/15/17 11:57 Pulse 98 10/15/17 11:57 Resp 16 10/15/17 11:57 BP 118/73 10/15/17 11:57 Pulse Ox 96 10/15/17 11:57 Intake & Output 10/14/17 10/15/17 10/15/17 18:59 06:59 18:59 Intake Total 1019 3146 320 Output Total 3100 6799 Balance -2081 -0853 320 Intake: IV Fluids 74 50 NS (0.9%) 74 50 Oral 675 2750 320 Packed Cells 270 346 Output: Reyes 3100 6775 Laboratory Last Values WBC 6.5 10^3/ul (3.5-10.8) 10/15/17 05:37 RBC 2.64 10^6/ul (4.0-5.4) L 10/15/17 05:37 Hgb 8.2 g/dl (14.0-18.0) L 10/15/17 05:37 Hct 24 % (42-52) L 10/15/17 05:37 MCV 89 fL (80-94) 10/15/17 05:37 MCH 31 pg (27-31) 10/15/17 05:37 MCHC 35 g/dl (31-36) 10/15/17 05:37 RDW 15 % (10.5-15) 10/15/17 05:37 Plt Count 244 10^3/ul (150-450) 10/15/17 05:37 MPV 6.5 um3 (7.4-10.4) L 10/15/17 05:37 Neut % (Auto) 69.4 % (38-83) 10/15/17 05:37 Lymph % (Auto) 19.6 % (25-47) L 10/15/17 05:37 [place] % (Auto) 9.1 % (0-7) H 10/15/17 05:37 Eos % (Auto) 1.7 % (0-6) 10/15/17 05:37 Baso % (Auto) 0.2 % (0-2) 10/15/17 05:37 Absolute Neuts (auto) 4.5 10^3/ul (1.5-7.7) 10/15/17 05:37 Absolute Lymphs (auto) 1.3 10^3/ul (1.0-4.8) 10/15/17 05:37 Absolute Monos (auto) 0.6 10^3/ul (0-0.8) 10/15/17 05:37 Absolute Eos (auto) 0.1 10^3/ul (0-0.6) 10/15/17 05:37 Absolute Basos (auto) 0 10^3/ul (0-0.2) 10/15/17 05:37 Absolute Nucleated RBC 0 10^3/ul 10/15/17 05:37 Nucleated RBC % 0 10/15/17 05:37 INR (Anticoag Therapy) 0.95 (0.77-1.02) 10/09/17 19:22 APTT 29.8 seconds (26.0-36.3) 10/09/17 19:22 Sodium 138 mmol/L (139-145) L 10/13/17 05:14 Potassium 4.0 mmol/L (3.5-5.0) 10/13/17 05:14 Chloride 107 mmol/L (101-111) 10/13/17 05:14 Carbon Dioxide 24 mmol/L (22-32) 10/13/17 05:14 Anion Gap 7 mmol/L (2-11) 10/13/17 05:14 BUN 7 mg/dL (6-24) 10/13/17 05:14 Creatinine 0.42 mg/dL (0.67-1.17) L 10/13/17 05:14 Est GFR ( Amer) 284.1 (>60) 10/13/17 05:14 Est GFR (Non-Af Amer) 220.9 (>60) 10/13/17 05:14 BUN/Creatinine Ratio 16.7 (8-20) 10/13/17 05:14 Glucose 130 mg/dL (70-100) H 10/13/17 05:14 Lactic Acid 1.7 mmol/L (0.5-2.0) 10/09/17 19:22 Calcium 7.6 mg/dL (8.6-10.3) L 10/13/17 05:14 Total Bilirubin 0.70 mg/dL (0.2-1.0) 10/11/17 20:03 AST 14 U/L (13-39) 10/11/17 20:03 ALT 12 U/L (7-52) 10/11/17 20:03 Alkaline Phosphatase 97 U/L (34-104) 10/11/17 20:03 Total Creatine Kinase 173 U/L (10-223) 10/13/17 10:56 C-Reactive Protein 9.45 mg/L (< 5.00) H 10/09/17 19:22 Total Protein 5.3 g/dL (6.4-8.9) L 10/11/17 20:03 Albumin 3.0 g/dL (3.2-5.2) L 10/11/17 20:03 Globulin 2.3 g/dL (2-4) 10/11/17 20:03 Albumin/Globulin Ratio 1.3 (1-3) 10/11/17 20:03 Procalcitonin < 0.1 ng/mL (<0.6) 10/09/17 19:22 Urine Color Yellow 10/09/17 20:50 Urine Appearance Cloudy 10/09/17 20:50 Urine pH 5.0 (5-9) 10/09/17 20:50 Ur Specific [place] 1.024 (1.010-1.030) 10/09/17 20:50 Urine Protein 1+(30 mg/dl) (Negative) A 10/09/17 20:50 Urine Ketones 2+ (Negative) A 10/09/17 20:50 Urine Blood Negative (Negative) 10/09/17 20:50 Urine Nitrate Negative (Negative) 10/09/17 20:50 Urine Bilirubin Negative (Negative) 10/09/17 20:50 Urine Urobilinogen Negative (Negative) 10/09/17 20:50 Ur Leukocyte Esterase Negative (Negative) 10/09/17 20:50 Urine WBC (Auto) 3+(>20/hpf) (Absent) A 10/09/17 20:50 Urine RBC (Auto) 3+(>10/hpf) (Absent) A 10/09/17 20:50 Ur Squamous Epith Cells Present (Absent) A 10/09/17 20:50 Urine Bacteria 1+ (Absent) A 10/09/17 20:50 Urine Glucose Negative (Negative) 10/09/17 20:50 Blood Type A Positive 10/14/17 05:39 Antibody Screen Negative 10/14/17 05:39 Crossmatch See Detail 10/14/17 05:39 General: Well appearing, NAD RLE: Right knee hinged brace in place. Thigh is soft. Calf with ecchymosis and 2 + edema, muscles compressible and he is quite tender to palpation, no palpble cords. Capillary refill brisk distally. LLE: Dressing changed. Incision CDI without erythema, edema or palpable cords. Thigh soft, calf soft and nontender without erythema, edema or palpable cords. Assessment: []POD 3 ORIF left distal femur fracture Closed treatment of right proximal tibia metaphyseal fracture with long leg brace Plan: []OOB with lift if at all possible. Trapeze when in bed. Daily dry sterile dressing changes Pressure sore prophylaxis PT is okay to work on motion of Left knee. R knee in brace for now. Evalution by [facility] in progress
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
[2017-10-15] MEDS: Enoxaparin(*) 40 MG/0.4 ML SYR SUBCUT SCH (20:51)
[2017-10-16] MEDS: Ascorbic Acid TAB* 500 MG PO SCH (08:17)
[2017-10-16] MEDS: Docusate CAP* 100 MG PO SCH ×2 (08:25→21:39)
[2017-10-16] MEDS: Magnesium Hydroxide LIQ* 30 ML UDC PO SCH ×2 (08:25→21:39)
[2017-10-16] MEDS: Oxybutynin TAB* 5 MG PO SCH ×2 (08:25→21:39)
[2017-10-16] MEDS: Polyethylene Glycol 3350* 17 GM PACKET PO SCH (08:25)
[2017-10-16] MEDS: Baclofen TAB* 10 MG PO SCH ×3 (08:25→21:39)
--- NOTE | 2017-10-16 14:43 | PN ---
Progress Note - Progress Note Date of Service: 10/16/17 SOAP: Subjective: []Patient seen at bedside. He is much happier and more comfortable today since discontinuing narcotic use. His pain does reach 7/10 at times but he states it is not markedly worse than while taking percocet, and he overall feels betters without it. Denies chest pain, shortness of breath, dizziness. Objective: [] Vital Signs Temp 97.4 F 10/16/17 11:29 Pulse 91 10/16/17 11:29 Resp 16 10/16/17 11:29 BP 131/68 10/16/17 11:29 Pulse Ox 100 10/16/17 11:29 Intake & Output 10/15/17 10/16/17 10/16/17 18:59 06:59 18:59 Intake Total 1520 1400 600 Output Total 3250 6275 1200 Balance -1730 4875 -600 Intake: Oral 1520 1400 600 Output: Urine 1075 Reyes 3250 5200 1200 Laboratory Last Values WBC 6.5 10^3/ul (3.5-10.8) 10/15/17 05:37 RBC 2.64 10^6/ul (4.0-5.4) L 10/15/17 05:37 Hgb 8.2 g/dl (14.0-18.0) L 10/15/17 05:37 Hct 24 % (42-52) L 10/15/17 05:37 MCV 89 fL (80-94) 10/15/17 05:37 MCH 31 pg (27-31) 10/15/17 05:37 MCHC 35 g/dl (31-36) 10/15/17 05:37 RDW 15 % (10.5-15) 10/15/17 05:37 Plt Count 244 10^3/ul (150-450) 10/15/17 05:37 MPV 6.5 um3 (7.4-10.4) L 10/15/17 05:37 Neut % (Auto) 69.4 % (38-83) 10/15/17 05:37 Lymph % (Auto) 19.6 % (25-47) L 10/15/17 05:37 [place] % (Auto) 9.1 % (0-7) H 10/15/17 05:37 Eos % (Auto) 1.7 % (0-6) 10/15/17 05:37 Baso % (Auto) 0.2 % (0-2) 10/15/17 05:37 Absolute Neuts (auto) 4.5 10^3/ul (1.5-7.7) 10/15/17 05:37 Absolute Lymphs (auto) 1.3 10^3/ul (1.0-4.8) 10/15/17 05:37 Absolute Monos (auto) 0.6 10^3/ul (0-0.8) 10/15/17 05:37 Absolute Eos (auto) 0.1 10^3/ul (0-0.6) 10/15/17 05:37 Absolute Basos (auto) 0 10^3/ul (0-0.2) 10/15/17 05:37 Absolute Nucleated RBC 0 10^3/ul 10/15/17 05:37 Nucleated RBC % 0 10/15/17 05:37 INR (Anticoag Therapy) 0.95 (0.77-1.02) 10/09/17 19:22 APTT 29.8 seconds (26.0-36.3) 10/09/17 19:22 Sodium 138 mmol/L (139-145) L 10/13/17 05:14 Potassium 4.0 mmol/L (3.5-5.0) 10/13/17 05:14 Chloride 107 mmol/L (101-111) 10/13/17 05:14 Carbon Dioxide 24 mmol/L (22-32) 10/13/17 05:14 Anion Gap 7 mmol/L (2-11) 10/13/17 05:14 BUN 7 mg/dL (6-24) 10/13/17 05:14 Creatinine 0.42 mg/dL (0.67-1.17) L 10/13/17 05:14 Est GFR ( Amer) 284.1 (>60) 10/13/17 05:14 Est GFR (Non-Af Amer) 220.9 (>60) 10/13/17 05:14 BUN/Creatinine Ratio 16.7 (8-20) 10/13/17 05:14 Glucose 130 mg/dL (70-100) H 10/13/17 05:14 Lactic Acid 1.7 mmol/L (0.5-2.0) 10/09/17 19:22 Calcium 7.6 mg/dL (8.6-10.3) L 10/13/17 05:14 Total Bilirubin 0.70 mg/dL (0.2-1.0) 10/11/17 20:03 AST 14 U/L (13-39) 10/11/17 20:03 ALT 12 U/L (7-52) 10/11/17 20:03 Alkaline Phosphatase 97 U/L (34-104) 10/11/17 20:03 Total Creatine Kinase 173 U/L (10-223) 10/13/17 10:56 C-Reactive Protein 9.45 mg/L (< 5.00) H 10/09/17 19:22 Total Protein 5.3 g/dL (6.4-8.9) L 10/11/17 20:03 Albumin 3.0 g/dL (3.2-5.2) L 10/11/17 20:03 Globulin 2.3 g/dL (2-4) 10/11/17 20:03 Albumin/Globulin Ratio 1.3 (1-3) 10/11/17 20:03 Procalcitonin < 0.1 ng/mL (<0.6) 10/09/17 19:22 Urine Color Yellow 10/09/17 20:50 Urine Appearance Cloudy 10/09/17 20:50 Urine pH 5.0 (5-9) 10/09/17 20:50 Ur Specific [place] 1.024 (1.010-1.030) 10/09/17 20:50 Urine Protein 1+(30 mg/dl) (Negative) A 10/09/17 20:50 Urine Ketones 2+ (Negative) A 10/09/17 20:50 Urine Blood Negative (Negative) 10/09/17 20:50 Urine Nitrate Negative (Negative) 10/09/17 20:50 Urine Bilirubin Negative (Negative) 10/09/17 20:50 Urine Urobilinogen Negative (Negative) 10/09/17 20:50 Ur Leukocyte Esterase Negative (Negative) 10/09/17 20:50 Urine WBC (Auto) 3+(>20/hpf) (Absent) A 10/09/17 20:50 Urine RBC (Auto) 3+(>10/hpf) (Absent) A 10/09/17 20:50 Ur Squamous Epith Cells Present (Absent) A 10/09/17 20:50 Urine Bacteria 1+ (Absent) A 10/09/17 20:50 Urine Glucose Negative (Negative) 10/09/17 20:50 Blood Type A Positive 10/14/17 05:39 Antibody Screen Negative 10/14/17 05:39 Crossmatch See Detail 10/14/17 05:39 General: Well appearing, NAD RLE: Right knee hinged brace in place, adjusted improve fit. Thigh is soft. Calf with ecchymosis and 2+ edema in calf and foot, muscles compressible and he is tender to palpation, no palpable cords. Capillary refill brisk distally. 2+ DP pulse. Foot tends towards external rotation. LLE: Dressing changed. Incision CDI without erythema, edema or palpable cords. Thigh soft, calf soft and nontender without erythema, edema or palpable cords. 2 + DP pulse Assessment: []sp ORIF left distal femur fracture Closed treatment of right proximal tibia metaphyseal fracture with long leg brace Plan: []OOB with lift. Trapeze when in bed. Daily dry sterile dressing changes Pressure sore prophylaxis PT may work on motion of Left knee. R knee in brace locked at 20 degrees x 3 weeks. Thereafter anticipate allowing ROM 0-45 degrees PMRU tomorrow morning
--- NOTE | 2017-10-16 18:23 | RAD ---
HISTORY: Right tibial fracture, fall COMPARISONS: October 09, 2017 VIEWS: 6, Frontal and lateral views of the right foreleg FINDINGS: BONE DENSITY: There is diffuse osteopenia. BONES: Again noted are displaced fractures of the proximal tibia and fibula, stable from the previous examination. JOINTS: There is no arthropathy. ALIGNMENT: There is no dislocation. SOFT TISSUES: Unremarkable. OTHER FINDINGS: None. IMPRESSION: PERSISTENT FRACTURES OF THE PROXIMAL TIBIA AND FIBULA. OSTEOPENIA.
[2017-10-16] MEDS: Enoxaparin(*) 40 MG/0.4 ML SYR SUBCUT SCH (21:42)
[2017-10-17 08:40] LABS: Hematocrit 30 % (42-52); Hemoglobin 9.9 g/dl (14.0-18.0)
[2017-10-17] MEDS: Ascorbic Acid TAB* 500 MG PO SCH (08:42)
[2017-10-17] MEDS: Baclofen TAB* 10 MG PO SCH (08:51)
[2017-10-17] MEDS: Docusate CAP* 100 MG PO SCH (08:51)
[2017-10-17] MEDS: Oxybutynin TAB* 5 MG PO SCH (08:51)
[2017-10-17] MEDS: Polyethylene Glycol 3350* 17 GM PACKET PO SCH (08:51)
[2017-10-17] MEDS: Magnesium Hydroxide LIQ* 30 ML UDC PO SCH (08:51)
[2017-10-17 09:03] VITALS: BP 117/56
--- NOTE | 2017-10-17 11:03 | PN ---
Progress Note - Progress Note Date of Service: 10/17/17 SOAP: Subjective: []Patient seen at bedside. He feels well and is comfortable with his current pain level. Denies chest pain, shortness of breath, dizziness. Has skin tear of left buttock along previous incision of skin flap procedure. Patient has sent photo to his plastic surgeon who complete the procedure. Objective: [] Vital Signs Temp 98.3 F 10/17/17 07:31 Pulse 75 10/17/17 07:31 Resp 16 10/17/17 07:31 BP 117/56 10/17/17 07:31 Pulse Ox 99 10/17/17 07:31 Intake & Output 10/16/17 10/17/17 10/17/17 18:59 06:59 18:59 Intake Total 910 920 350 Output Total 1200 3375 1600 Balance -290 -2455 -1250 Intake: Oral 910 920 350 Output: Reyes 1200 3375 1600 Other: # Bowel Movements 1 Estimated Stool Amount Medium Large Laboratory Last Values WBC 6.5 10^3/ul (3.5-10.8) 10/15/17 05:37 RBC 2.64 10^6/ul (4.0-5.4) L 10/15/17 05:37 Hgb 9.9 g/dl (14.0-18.0) L 10/17/17 08:29 Hct 30 % (42-52) L 10/17/17 08:29 MCV 89 fL (80-94) 10/15/17 05:37 MCH 31 pg (27-31) 10/15/17 05:37 MCHC 35 g/dl (31-36) 10/15/17 05:37 RDW 15 % (10.5-15) 10/15/17 05:37 Plt Count 244 10^3/ul (150-450) 10/15/17 05:37 MPV 6.5 um3 (7.4-10.4) L 10/15/17 05:37 Neut % (Auto) 69.4 % (38-83) 10/15/17 05:37 Lymph % (Auto) 19.6 % (25-47) L 10/15/17 05:37 [place] % (Auto) 9.1 % (0-7) H 10/15/17 05:37 Eos % (Auto) 1.7 % (0-6) 10/15/17 05:37 Baso % (Auto) 0.2 % (0-2) 10/15/17 05:37 Absolute Neuts (auto) 4.5 10^3/ul (1.5-7.7) 10/15/17 05:37 Absolute Lymphs (auto) 1.3 10^3/ul (1.0-4.8) 10/15/17 05:37 Absolute Monos (auto) 0.6 10^3/ul (0-0.8) 10/15/17 05:37 Absolute Eos (auto) 0.1 10^3/ul (0-0.6) 10/15/17 05:37 Absolute Basos (auto) 0 10^3/ul (0-0.2) 10/15/17 05:37 Absolute Nucleated RBC 0 10^3/ul 10/15/17 05:37 Nucleated RBC % 0 10/15/17 05:37 INR (Anticoag Therapy) 0.95 (0.77-1.02) 10/09/17 19:22 APTT 29.8 seconds (26.0-36.3) 10/09/17 19:22 Sodium 143 mmol/L (139-145) 10/17/17 08:29 Potassium 4.0 mmol/L (3.5-5.0) 10/13/17 05:14 Chloride 107 mmol/L (101-111) 10/13/17 05:14 Carbon Dioxide 24 mmol/L (22-32) 10/13/17 05:14 Anion Gap 7 mmol/L (2-11) 10/13/17 05:14 BUN 7 mg/dL (6-24) 10/13/17 05:14 Creatinine 0.42 mg/dL (0.67-1.17) L 10/13/17 05:14 Est GFR ( Amer) 284.1 (>60) 10/13/17 05:14 Est GFR (Non-Af Amer) 220.9 (>60) 10/13/17 05:14 BUN/Creatinine Ratio 16.7 (8-20) 10/13/17 05:14 Glucose 130 mg/dL (70-100) H 10/13/17 05:14 Lactic Acid 1.7 mmol/L (0.5-2.0) 10/09/17 19:22 Calcium 7.6 mg/dL (8.6-10.3) L 10/13/17 05:14 Total Bilirubin 0.70 mg/dL (0.2-1.0) 10/11/17 20:03 AST 14 U/L (13-39) 10/11/17 20:03 ALT 12 U/L (7-52) 10/11/17 20:03 Alkaline Phosphatase 97 U/L (34-104) 10/11/17 20:03 Total Creatine Kinase 173 U/L (10-223) 10/13/17 10:56 C-Reactive Protein 9.45 mg/L (< 5.00) H 10/09/17 19:22 Total Protein 5.3 g/dL (6.4-8.9) L 10/11/17 20:03 Albumin 3.0 g/dL (3.2-5.2) L 10/11/17 20:03 Globulin 2.3 g/dL (2-4) 10/11/17 20:03 Albumin/Globulin Ratio 1.3 (1-3) 10/11/17 20:03 Procalcitonin < 0.1 ng/mL (<0.6) 10/09/17 19:22 Urine Color Yellow 10/09/17 20:50 Urine Appearance Cloudy 10/09/17 20:50 Urine pH 5.0 (5-9) 10/09/17 20:50 Ur Specific [place] 1.024 (1.010-1.030) 10/09/17 20:50 Urine Protein 1+(30 mg/dl) (Negative) A 10/09/17 20:50 Urine Ketones 2+ (Negative) A 10/09/17 20:50 Urine Blood Negative (Negative) 10/09/17 20:50 Urine Nitrate Negative (Negative) 10/09/17 20:50 Urine Bilirubin Negative (Negative) 10/09/17 20:50 Urine Urobilinogen Negative (Negative) 10/09/17 20:50 Ur Leukocyte Esterase Negative (Negative) 10/09/17 20:50 Urine WBC (Auto) 3+(>20/hpf) (Absent) A 10/09/17 20:50 Urine RBC (Auto) 3+(>10/hpf) (Absent) A 10/09/17 20:50 Ur Squamous Epith Cells Present (Absent) A 10/09/17 20:50 Urine Bacteria 1+ (Absent) A 10/09/17 20:50 Urine Glucose Negative (Negative) 10/09/17 20:50 Diazepam <50 ng/mL 10/09/17 20:48 Nordiazepam <50 ng/mL 10/09/17 20:48 Diazepam & Nordiazepam See comment ng/mL (200-2500) 10/09/17 20:48 Blood Type A Positive 10/14/17 05:39 Antibody Screen Negative 10/14/17 05:39 Crossmatch See Detail 10/14/17 05:39 General: Well appearing, NAD RLE: Right knee hinged brace in place, again adjusted improve fit. Thigh is soft. Calf with ecchymosis and 2+ edema in calf and foot, muscles compressible and he is tender to palpation, no palpable cords. Capillary refill brisk distally. 2+ DP pulse. LLE: Dressing changed. Incision CDI without erythema, edema or palpable cords. Thigh soft, calf soft and nontender without erythema, edema or palpable cords. 2 + DP pulse Skin: Left buttock with well healed incision from skin flap procedure aside from a superficial skin tear measuring roughly 3 cm at 5 oclock on left buttock. No bleeding and no deeper structure involvement noted. Assessment: []sp ORIF left distal femur fracture Closed treatment of right proximal tibia metaphyseal fracture with long leg brace Plan: []Weight bearing status: NWB RLE. Hinged knee brace to remain in place, locked at 20 degrees for the next three weeks. LLE may work flexion and extension with PT as tolerated. OOB with prachi. No restriction on transfer technique due to skin tear aside from avoidance of sheering force with special attention to left buttock skin tear. Skin tear left buttock Discussed with Plastic surgeon who complete skin flap procedure, Dr Ambrosio ( Cell phone [phone]). It seems patient has a superficial skin tear along old incision from skin flap procedure. If this area is bleeding or deeper tissues become involved, need to contact Dr Ambrosio. I have asked for a wound care consult as well, for now dry sterile dressing daily and as needed. Dressing to operative incision: Dry sterile dressing changes daily. [place] to be removed 10-14 days post op. Follow up: Follow up with Dr. Kelley in 10-14 days DVT prophylaxis: Continue lovenox 40 mg sq daily x total of 30 days Pain Control: Patient has refused narcotic pain medications as well as gabapentin and lyrica at this time. Anemia: H&H improved today Hyponatremia: Stable despite large I&O Repeat xray RLE stable from previous
--- NOTE | 2017-10-17 14:02 | PN ---
Progress Note - Progress Note Date of Service: 10/12/17 Note: This is an addendum to my note from 10/12/17. Over 15 minutes were spent with this patient with over half of that being spent in the counseling and coordination of care.
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
== END 2017-10-17 12:09 | DRG 956 ==
LOC: ED 16:42 → MED 19:56 → SSU 10-12 19:37
PROVIDERS: ADMIT Orthopaedic Surgery; ATTEND Orthopaedic Surgery Hand Surgery
PROC: 0QSC04Z Reposition Left Lower Femur with Internal Fixation Device, Open Approach (ICD-10-PCS; 2017-10-12)
PROC: 2W3LX3Z Immobilization of Right Lower Extremity using Brace (ICD-10-PCS; 2017-10-12)
PROC: 30233N1 Transfusion of Nonautologous Red Blood Cells into Peripheral Vein, Percutaneous Approach (ICD-10-PCS; principal; 2017-10-12 13:30)
DX: S89.001A Unspecified physeal fracture of upper end of right tibia, initial encounter for closed fracture (principal); S72.402A Unspecified fracture of lower end of left femur, initial encounter for closed fracture; T79.6XXA Traumatic ischemia of muscle, initial encounter; L89.153 Pressure ulcer of sacral region, stage 3; G82.20 Paraplegia, unspecified; M19.90 Unspecified osteoarthritis, unspecified site; H91.90 Unspecified hearing loss, unspecified ear; G89.29 Other chronic pain; R07.81 Pleurodynia; W01.0XXA Fall on same level from slipping, tripping and stumbling without subsequent striking against object, initial encounter; D72.829 Elevated white blood cell count, unspecified; D64.9 Anemia, unspecified; R32 Unspecified urinary incontinence; S31.821A Laceration without foreign body of left buttock, initial encounter; Z86.19 Personal history of other infectious and parasitic diseases; Z82.49 Family history of ischemic heart disease and other diseases of the circulatory system; Z87.891 Personal history of nicotine dependence; Z99.3 Dependence on wheelchair; Y92.009 Unspecified place in unspecified non-institutional (private) residence as the place of occurrence of the external cause; Z98.1 Arthrodesis status; Z87.440 Personal history of urinary (tract) infections
CPT/HCPCS: 36415; 71045; 73523; 76001; 80048; 80053; 80346; 81003; 81015; 82550; 83605; 84145; 84300; 85014; 85018; 85025; 85049; 85610; 85730; 86140; 86850; 86900; 86901; 86922; 87040; 87086; 93005; 97530; 99285; A9270-GY; C1713; C1776; G0480; G8978-GP-CM; G8979-GP-CK; J0690; J0696; J1100; J1170; J1650; J2250; J2270; J2405; J2704; J2710; J3010; P9040

== ENCOUNTER 2017-10-17 07:37 | Inpatient (IN) | payer OTHER ==
[2017-10-17] MEDS ORDERED: Senna TAB PO PRN (13:06)
[2017-10-17] MEDS ORDERED: Acetaminophen TAB* 325 MG PO PRN (13:06)
[2017-10-17] MEDS ORDERED: Magnesium Hydroxide LIQ* 30 ML UDC PO PRN (13:06)
[2017-10-17] MEDS: Baclofen TAB* 10 MG PO SCH ×2 (15:54→21:26)
[2017-10-17] MEDS: Enoxaparin(*) 40 MG/0.4 ML SYR SUBCUT SCH (21:26)
[2017-10-17] MEDS: Docusate CAP* 100 MG PO SCH (21:26)
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
[2017-10-18] MEDS: Docusate CAP* 100 MG PO SCH ×2 (07:28→20:28)
[2017-10-18] MEDS: Polyethylene Glycol 3350* 17 GM PACKET PO SCH (07:28)
--- NOTE | 2017-10-18 18:15 | PN ---
Progress Note Date of Service: 10/18/17 Note: SHIMON SCHROEDER was visited. Therapy notes read and reviewed. He had a good day of therapy. He feels pretty good about the things he did today. Pain is ok. His spasticity is present, will try Tizanidine tonight Current Medications: Active Medications Generic Name Dose Route Start Last Admin Trade Name Freq PRN Reason Stop Dose Admin Acetaminophen 650 mg 10/17/17 13:06 Tylenol Tab* PO Q6H PRN FEVER/PAIN Docusate Sodium 100 mg 10/17/17 21:00 10/18/17 07:28 Colace Cap* PO Not Given BID WILLIAM Enoxaparin Sodium 40 mg 10/17/17 21:00 10/17/17 21:26 Lovenox(*) SUBCUT 40 mg Q24H WILLIAM Administration Magnesium Hydroxide 30 ml 10/17/17 13:06 Milk Of Magnesia Liq* PO Q6H PRN CONSTIPATION Polyethylene Glycol/Electrolytes 17 gm 10/18/17 09:00 10/18/17 07:28 Miralax* PO Not Given DAILY WILLIAM Senna 2 tab 10/17/17 13:06 Senokot Tab* PO BEDTIME PRN CONSTIPATION Tizanidine HCl 2 mg 10/18/17 21:00 Zanaflex Tab* PO BEDTIME WILLIAM Vital Signs: Vital Signs Temp Pulse Resp BP Pulse Ox 99.0 F 96 18 133/64 99 10/18/17 16:26 10/18/17 16:26 10/18/17 16:26 10/18/17 16:26 10/18/17 16:26 Exam: HEENT: EOMI LUNGS: Clear HEART: reg rhythm ABDOMEN: Soft EXTREMITIES: RLE in brace, edematous NEUROLOGIC: No voluntary movement in legs. Sensation altered below chest Assessment/Plan: 1. Left Distal Femur fracture: S/P ORIF. PT/OT to work on ADLs and transfers 2. Right Proximal Tibia Fracture: Had closed reduction. In hinged Knee brace AAT 3. T5 Paraplegia, MARLEN class B. Work on transfers, W/C mobilities, ADLs 4. Neurogenic Bladder and Bowel: Reyes. Trying to establish a bowel program 5. S/P Myocutaneous Flap: Special Mattress. ROHO cushion. 6. Spasticity: Tizanidine tonight. He doesn't like Baclofen 7. DVT Prophylaxis: Lovenox 10/18/17 18:11
[2017-10-18] MEDS: Enoxaparin(*) 40 MG/0.4 ML SYR SUBCUT SCH (21:10)
[2017-10-18] MEDS: tiZANidine TAB* 2 MG PO SCH (21:11)
[2017-10-19 06:55] LABS: ABS Basophils 0 10^3/ul (0-0.2); ABS Eosinophils 0.2 10^3/ul (0-0.6); ABS Lymphocytes 0.9 10^3/ul (1.0-4.8); ABS Monocytes 0.6 10^3/ul (0-0.8); ABS Neutrophils 5.1 10^3/ul (1.5-7.7); ABS Nucleated RBC 0 10^3/ul; Eosinophil % 3.2 % (0-6); Hematocrit 28 % (42-52); Hemoglobin 9.5 g/dl (14.0-18.0); Lymphocyte % 13.6 % (25-47); Mean Corpuscular HGB Conc 34 g/dl (31-36); Mean Corpuscular Hemoglobin 31 pg (27-31); Mean Corpuscular Volume 90 fL (80-94); Mean Platelet Volume 6.3 um3 (7.4-10.4); Nucleated Red Blood Cells % 0.1; Platelet Count 484 10^3/ul (150-450); Red Blood Count 3.11 10^6/ul (4.0-5.4); Red Cell Distribution Width 14 % (10.5-15); White Blood Count 6.8 10^3/ul (3.5-10.8)
[2017-10-19 07:11] LABS: EGFR Non-African American 161.8 (>60)
[2017-10-19] MEDS: Docusate CAP* 100 MG PO SCH ×2 (08:57→20:47)
[2017-10-19] MEDS: Polyethylene Glycol 3350* 17 GM PACKET PO SCH (08:57)
[2017-10-19] MEDS ORDERED: Hydrocortisone 1% CREAM* 30 GM TUBE TOPICAL PRN (10:37)
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
--- NOTE | 2017-10-19 12:39 | PMRUTEAM ---
PMRU: Team Meeting Current Status: Nursing: Current Status Skin Deviations [Left Lower Other Buttocks] Skin Deviations [Right Heel] Other Skin Deviations [Bilateral Other Heel] Skin Deviation Description [ flap site Left Lower Buttocks] opening along scar line Skin Deviation Description [ black eshcar Right Heel] Skin Deviation Description [ discoloration Bilateral Heel] Physical Therapy: Current Status Bed Mobility Assistance Min Assist Transfer Moblility Assistance dependent Transfer/Bed Mobility Victor Manuel Lift Recommended Devices Ambulation Assistance Unable Occupational Therapy: Current Status Upper Body Dressing supervision Lower Body Dressing Total Assist,2 Person Assist Bathing Max Asst Toileting Total Assist,2 Person Assist Toilet Transfer Mod Assist,2 Person Assist Shower Transfer Total Assist,2 Person Assist Eating Independent Rec Therapy: Current Status Summary of Assessment and Pt. was open to conversation - very engaged and Clinical Impression pleasant. Pt. was active in activities of interest prior to admission - especially his coffee art. Pt. has material to complete this activity while on the unit. Pt. expressed interest in continued leisure visits. Treatment Goals Pt. will engage in leisure activities while on the unit. Treatment Plan Provide RT services and encourage involvement. Social Work: Current Status Discharge Plan return home with home care svs and family support Potential for Family Training pt's family are involved and supportive Anticipated Discharge Home Destination Discharge With home care svs and family support Goals: Physical Therapy: Initial Goals Bed Mobility Assistance Min Assist Transfer Mobility Assistance Min Assist Occupational Therapy: Initial Goals Goals to be Completed in (Days 5-7 days ) Upper Body Bathing Routine Supervision/Set Up Lower Body Bathing Routine Moderate Assist Upper Body Dressing Routine Independent Lower Body Dressing Routine Moderate Assist Toilet Hygeine and Clothing Maximal Assist Management Routine Toilet Transfer Routine Total Assist Tub Transfer Routine Total Assist Functional Transfers for ADL Total Assist Grooming Routine Independent Feeding Routine Independent Social Work: Goals Discharge Plan return home with home care svs and family support Potential for Family Training pt's family are involved and supportive Anticipated Discharge Home Destination Discharge With home care svs and family support Care Plan: Care Plan Cardiovascular- Improve/Maintain Start: 10/17/17 22:18 Freq: DAILY Status: Active Target: Protocol: Activity Type Activity Date Activity User E-Sign Co-Sign Detail Recorded Client Recorded Date Recorded By Document 10/19/17 00:25 [id number] 10/19/17 00:25 [id number] 10/19/17 00:25 PMRU Outcome: Cardiovascular Vital Signs q Shift for 48hrs Then BID Yes Daily Weight Ordered No Current Cardiovascular Outcome/Goal Maintain/ Achieve Baseline HR, BP , Perfusion Progression Toward Outcome/Goal Progressing DVT Prophylaxis- Improve/Maintain Start: 10/17/17 22:18 Freq: DAILY Status: Active Target: Protocol: Activity Type Activity Date Activity User E-Sign Co-Sign Detail Recorded Client Recorded Date Recorded By Document 10/19/17 00:25 [id number] 10/19/17 00:25 [id number] 10/19/17 00:25 PMRU Outcome: DVT Prophylaxis Outcome/Goals Remains Free of DVT Progression Toward Outcome/Goals Progressing Discharge Planning - Improve/Maintain Start: 10/17/17 22:18 Freq: DAILY Status: Active Target: Protocol: Activity Type Activity Date Activity User E-Sign Co-Sign Detail Recorded Client Recorded Date Recorded By Document 10/19/17 00:25 [id number] 10/19/17 00:25 [id number] 10/19/17 00:25 PMRU Outcome: Discharge Planning Update Patient Family No Outcome/Goals Demonstrates Understanding of Discharge Plan Progression Toward Outcome/Goals Progressing Education-Improve/Maintain Start: 10/17/17 22:18 Freq: DAILY Status: Active Target: Protocol: Activity Type Activity Date Activity User E-Sign Co-Sign Detail Recorded Client Recorded Date Recorded By Document 10/19/17 00:25 [id number] 10/19/17 00:25 [id number] 10/19/17 00:25 PMRU Outcome: Education Outcome/Goals Demonstrate/ Verbalize Understanding of Written Discharge Instructions Progression Toward Outcome/Goals Progressing /GI-Improve/Maintain Start: 10/17/17 22:18 Freq: DAILY Status: Active Target: Protocol: Activity Type Activity Date Activity User E-Sign Co-Sign Detail Recorded Client Recorded Date Recorded By Document 10/19/17 00:25 [id number] 10/19/17 00:25 [id number] 10/19/17 00:25 PMRU Outcome: Genitourinary/ Gastrointestinal Genitourinary- Outcome/Goals Maintain/ Achieve Urinary Continence Gastrointestinal-Outcome/Goals Maintain/ Achieve Bowel Regularity in Accordance with Pt's Baseline Progression Toward Outcome/Goals - Progressing Progression Toward Outcome/Goals - GI Progressing Outcome/Goals Met Comment goins in place Mobility- Improve/Maintain Start: 10/17/17 22:18 Freq: DAILY Status: Active Target: Protocol: Activity Type Activity Date Activity User E-Sign Co-Sign Detail Recorded Client Recorded Date Recorded By Document 10/18/17 14:33 [id number] [id number] 10/18/17 14:33 [id number] 10/18/17 14:33 PMRU Outcome: Mobility Progression Toward Outcome/Goals Progressing Neurological- Improve/Maintain Start: 10/17/17 22:18 Freq: DAILY Status: Active Target: Protocol: Activity Type Activity Date Activity User E-Sign Co-Sign Detail Recorded Client Recorded Date Recorded By Document 10/19/17 00:25 [id number] 10/19/17 00:25 [id number] 10/19/17 00:25 PMRU Outcome: Neurological Weakness/Aphasia Weakness Outcome/Goals Maintain/ Achieve Baseline Neurological Status Prevent Avoidable Neurological Decline Progression Toward Outcome/Goals Progressing Pain/Comfort- Improve/Maintain Start: 10/17/17 22:18 Freq: DAILY Status: Active Target: Protocol: Activity Type Activity Date Activity User E-Sign Co-Sign Detail Recorded Client Recorded Date Recorded By Document 10/19/17 00:25 [id number] 10/19/17 00:25 [id number] 10/19/17 00:25 PMRU Outcome: Pain/Comfort Outcome/Goals Demonstrates Knowledge and Use of Available Comfort Measures Achieves Acceptable Comfort/Pain Level as Determined by Patient/Condit Progression Toward Outcome/Goals Not Progressing Outcome/Goals Met Comment Declines pain medciation Safety- Improve/Maintain Start: 10/17/17 22:18 Freq: DAILY Status: Active Target: Protocol: Activity Type Activity Date Activity User E-Sign Co-Sign Detail Recorded Client Recorded Date Recorded By Document 10/19/17 00:25 [id number] [id number] 10/19/17 00:25 [id number] 10/19/17 00:25 PMRU Outcome: Safety Outcome/Goals Remain Free of Injury or Harm Prevent Falls/ Injury Progression Toward Outcome/Goals Progressing Skin- Improve/Maintain Start: 10/17/17 22:18 Freq: DAILY Status: Active Target: Protocol: Activity Type Activity Date Activity User E-Sign Co-Sign Detail Recorded Client Recorded Date Recorded By Document 10/19/17 00:25 [id number] [id number] 10/19/17 00:25 [id number] 10/19/17 00:25 PMRU Outcome: Skin Skin Risk Level High Skin Orders Air Mattress Multipodus Boot Turn/Position q2hr While in Bed Outcome/Goals Maintain/ Improve Skin Intergrity Free from Decubitus Progression Toward Outcome/Goals Progressing Outcome/Goals Met Comment bed changing position q15min Medicine Note: Length of Stay: [11 days] Anticipated Discharge Destination: Home Tentative Discharge Date: [10/30/17] Discharged to: [home with family support]
[2017-10-19] MEDS: Enoxaparin(*) 40 MG/0.4 ML SYR SUBCUT SCH (20:46)
[2017-10-19] MEDS: tiZANidine TAB* 2 MG PO SCH (20:47)
[2017-10-20] MEDS: Docusate CAP* 100 MG PO SCH ×2 (09:27→22:48)
[2017-10-20] MEDS: Polyethylene Glycol 3350* 17 GM PACKET PO SCH (09:28)
[2017-10-20] MEDS ORDERED: tiZANidine TAB* 2 MG PO PRN (10:26)
--- NOTE | 2017-10-20 10:26 | PN ---
Progress Note Date of Service: 10/20/17 Note: SHIMON SCHROEDER was visited. Nursing and therapy notes read and reviewed. No new issues overnight. No chest pain, shortness of breath or abdominal pains. He says he is not going to take tizanidine. Current Medications: Active Medications Generic Name Dose Route Start Last Admin Trade Name Freq PRN Reason Stop Dose Admin Acetaminophen 650 mg 10/17/17 13:06 Tylenol Tab* PO Q6H PRN FEVER/PAIN Docusate Sodium 100 mg 10/17/17 21:00 10/20/17 09:27 Colace Cap* PO Not Given BID WILLIAM Enoxaparin Sodium 40 mg 10/17/17 21:00 10/19/17 20:46 Lovenox(*) SUBCUT 40 mg Q24H WILLIAM Administration Hydrocortisone 1 applic 10/19/17 10:37 Hytone Cream 1%* TOPICAL QID PRN itching Magnesium Hydroxide 30 ml 10/17/17 13:06 Milk Of Magnesia Liq* PO Q6H PRN CONSTIPATION Polyethylene Glycol/Electrolytes 17 gm 10/18/17 09:00 10/20/17 09:28 Miralax* PO Not Given DAILY WILLIAM Senna 2 tab 10/17/17 13:06 Senokot Tab* PO BEDTIME PRN CONSTIPATION Tizanidine HCl 2 mg 10/18/17 21:00 10/19/17 20:47 Zanaflex Tab* PO Not Given BEDTIME WILLIAM Vital Signs: Vital Signs Temp Pulse Resp BP Pulse Ox 97.5 F 81 18 110/66 98 10/20/17 06:11 10/20/17 06:11 10/20/17 08:00 10/20/17 06:11 10/20/17 08:00 Exam: GEN: no acute distress. Alert and appropriate. LUNGS: Clear to auscultation bilaterally. HEART: regular rate and rhythm ABD: + bowel sounds, soft, non-tender, non-distended EXT: RLE in brace, edematous NEURO: No voluntary movement in legs. Sensation altered below chest SKIN: examined with nursing. 2 small slits at edges of flap incisions are clean without signs of infection and no drainage. Seem better than yesterday and closing. Back looks better today. Assessment/Plan: 42yo man with T5 paraplegia s/p recent gluteal flap who fell out of and sustained left distal femur and right proximal tibia fractures 1. Left Distal Femur fracture: S/P ORIF. PT/OT to work on ADLs and transfers 2. Right Proximal Tibia Fracture: Had closed reduction. In hinged Knee brace AAT 3. T5 Paraplegia, MARLEN class B. Work on transfers, W/C mobilities, ADLs 4. Neurogenic Bladder and Bowel: Reyes. Trying to establish a bowel program. f/ u with urology. 5. S/P Myocutaneous Flap: Special Mattress. ROHO cushion. Dry dressing changes daily. Routine skin checks. Spencos on heels when in bed. 6. Spasticity: Tizanidine ordered but he refused. I told him I would make order prn. He doesn't like Baclofen 7. DVT Prophylaxis: Lovenox 8. Rash on back: hydrocortisone topical prn. 9. Advanced directives: full code. 10. Estimated LOS: until 10/30/17 pending weekly progress reviews with team. 10/20/17 10:25
[2017-10-20] MEDS: Enoxaparin(*) 40 MG/0.4 ML SYR SUBCUT SCH (22:41)
[2017-10-21] MEDS: Polyethylene Glycol 3350* 17 GM PACKET PO SCH (09:31)
[2017-10-21] MEDS: Docusate CAP* 100 MG PO SCH ×2 (09:31→21:38)
--- NOTE | 2017-10-21 10:41 | PN ---
Progress Note Date of Service: 10/21/17 Note: SHIMON SCHROEDER was visited. Nursing and therapy notes read and reviewed. No chest pain, shortness of breath or abdominal pains. He was up in his own PWC yesterday. See PT notes for concerns about pressure areas in legs. Current Medications: Active Medications Generic Name Dose Route Start Last Admin Trade Name Freq PRN Reason Stop Dose Admin Acetaminophen 650 mg 10/17/17 13:06 Tylenol Tab* PO Q6H PRN FEVER/PAIN Docusate Sodium 100 mg 10/17/17 21:00 10/21/17 09:31 Colace Cap* PO Not Given BID WILLIAM Enoxaparin Sodium 40 mg 10/17/17 21:00 10/20/17 22:41 Lovenox(*) SUBCUT 40 mg Q24H WILLIAM Administration Hydrocortisone 1 applic 10/19/17 10:37 Hytone Cream 1%* TOPICAL QID PRN itching Magnesium Hydroxide 30 ml 10/17/17 13:06 Milk Of Magnesia Liq* PO Q6H PRN CONSTIPATION Polyethylene Glycol/Electrolytes 17 gm 10/18/17 09:00 10/21/17 09:31 Miralax* PO Not Given DAILY WILLIAM Senna 2 tab 10/17/17 13:06 Senokot Tab* PO BEDTIME PRN CONSTIPATION Tizanidine HCl 2 mg 10/20/17 10:26 Zanaflex Tab* PO BEDTIME PRN SPASMS Vital Signs: Vital Signs Temp Pulse Resp BP Pulse Ox 99.0 F 80 18 112/59 98 10/21/17 05:26 10/21/17 05:26 10/21/17 09:40 10/21/17 05:26 10/21/17 05:26 Exam: GEN: no acute distress. Alert and appropriate. LUNGS: Clear to auscultation bilaterally. HEART: regular rate and rhythm ABD: + bowel sounds, soft, non-tender, non-distended EXT: RLE in brace, edematous NEURO: No voluntary movement in legs. Sensation altered below chest SKIN: examined with nursing. The lower slit appears healed today and will not be redressed. The upper slit at the corner of his flap had a small amount of blood about 3mm. This was redressed with a dry dressing. No erythema. Educated him on position adjustments and trying to avoid shear. Assessment/Plan: 42yo man with T5 paraplegia s/p recent gluteal flap who fell out of and sustained left distal femur and right proximal tibia fractures 1. Left Distal Femur fracture: S/P ORIF. PT/OT to work on ADLs and transfers. 2. Right Proximal Tibia Fracture: Had closed reduction. In hinged Knee brace AAT 3. T5 Paraplegia, MARLEN class B. Work on transfers, W/C mobilities, ADLs 4. Neurogenic Bladder and Bowel: Reyes. Trying to establish a bowel program. f/ u with urology. 5. S/P Myocutaneous Flap: Special Mattress. ROHO cushion. Dry dressing changes daily. Routine skin checks. Spencos on heels when in bed. Need to avoid shear to flap as it is still healing. 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 Will d/w therapists. 6. Spasticity: Tizanidine prn, but he is unlikley to take. He doesn't like Baclofen 7. DVT Prophylaxis: Lovenox 8. Rash on back: hydrocortisone topical prn. 9. Advanced directives: full code. 10. Estimated LOS: until 10/30/17 pending weekly progress reviews with team. 10/21/17 10:39
[2017-10-21] MEDS: Enoxaparin(*) 40 MG/0.4 ML SYR SUBCUT SCH (21:48)
[2017-10-22] MEDS: Docusate CAP* 100 MG PO SCH ×2 (10:08→21:11)
[2017-10-22] MEDS: Polyethylene Glycol 3350* 17 GM PACKET PO SCH (10:08)
--- NOTE | 2017-10-22 16:26 | PN ---
Progress Note Date of Service: 10/22/17 Note: SHIMON SCHROEDER was visited. Therapy notes read and reviewed. Augustin was observed in his power wheelchair. His suture line is clear. He is independent in chair. Spasticity seems better controlled. Current Medications: Active Medications Generic Name Dose Route Start Last Admin Trade Name Freq PRN Reason Stop Dose Admin Acetaminophen 650 mg 10/17/17 13:06 Tylenol Tab* PO Q6H PRN FEVER/PAIN Docusate Sodium 100 mg 10/17/17 21:00 10/22/17 10:08 Colace Cap* PO Not Given BID WILLIAM Enoxaparin Sodium 40 mg 10/17/17 21:00 10/21/17 21:48 Lovenox(*) SUBCUT 40 mg Q24H WILLIAM Administration Hydrocortisone 1 applic 10/19/17 10:37 Hytone Cream 1%* TOPICAL QID PRN itching Magnesium Hydroxide 30 ml 10/17/17 13:06 Milk Of Magnesia Liq* PO Q6H PRN CONSTIPATION Polyethylene Glycol/Electrolytes 17 gm 10/18/17 09:00 10/22/17 10:08 Miralax* PO Not Given DAILY WILLIAM Senna 2 tab 10/17/17 13:06 Senokot Tab* PO BEDTIME PRN CONSTIPATION Tizanidine HCl 2 mg 10/20/17 10:26 Zanaflex Tab* PO BEDTIME PRN SPASMS Vital Signs: Vital Signs Temp Pulse Resp BP Pulse Ox 98.5 F 100 16 121/72 98 10/22/17 15:53 10/22/17 15:53 10/22/17 15:53 10/22/17 15:53 10/22/17 15:53 Exam: GEN: no acute distress. Alert and appropriate. LUNGS: Clear to auscultation bilaterally. HEART: regular rate and rhythm ABD: + bowel sounds, soft, non-tender, non-distended EXT: RLE in brace, edematous NEURO: No voluntary movement in legs. Sensation altered below chest Assessment/Plan: 1. Left Distal Femur fracture: S/P ORIF. PT/OT to work on ADLs and transfers. 2. Right Proximal Tibia Fracture: Had closed reduction. In hinged Knee brace AAT 3. T5 Paraplegia, MARLEN class B. Work on transfers, W/C mobilities, ADLs 4. Neurogenic Bladder and Bowel: Reyes. Trying to establish a bowel program. f/ u with urology. 5. S/P Myocutaneous Flap: Special Mattress. ROHO cushion. Dry dressing changes daily. Routine skin checks. Spencos on heels when in bed. Need to avoid shear to flap as it is still healing. Bogdan 6. Spasticity: Tizanidine prn, but he is unlikley to take. He doesn't like Baclofen 7. DVT Prophylaxis: Lovenox 8. Rash on back: hydrocortisone topical prn. 9. Advanced directives: full code. 10. Estimated LOS: until 10/30/17 pending weekly progress reviews with team. 10/22/17 16:26
[2017-10-22] MEDS: Enoxaparin(*) 40 MG/0.4 ML SYR SUBCUT SCH (21:10)
[2017-10-23] MEDS: Docusate CAP* 100 MG PO SCH ×2 (08:43→21:18)
[2017-10-23] MEDS: Polyethylene Glycol 3350* 17 GM PACKET PO SCH (08:43)
--- NOTE | 2017-10-23 13:05 | PMRUTEAM ---
PMRU: Team Meeting Current Status: Nursing: Current Status Skin Deviations [Left Leg] Incision Skin Deviations [Left Heel] Pressure Ulcer Skin Deviations [Left Lower Incision Buttocks] Skin Deviations [Right Heel] Pressure Ulcer Skin Deviations [Bilateral Pressure Ulcer Heel] Skin Deviation Description [ joe intact, well approximated, no redness or Left Leg] drainage noted. Skin Deviation Description [ preexisting dime size area with eschar to heel. Left Heel] staff noted drainage. mepilex applied. clarification from this senior technical writer's assessment on admission from 10/16/17. Skin Deviation Description [ healed incision with small open area healing again Left Lower Buttocks] Skin Deviation Description [ dime size unstagable. Right Heel] Skin Deviation Description [ on pillow Bilateral Heel] Physical Therapy: Current Status Bed Mobility Assistance Supervision Transfer Moblility Assistance Max Assist Transfer/Bed Mobility Victor Manuel Lift Recommended Devices Ambulation Assistance Unable Wheelchair Propulsion Ability Independent Wheelchair Distance (ft) 150 Objective Comments bed repositioning techniques, use of bumping vs sliding/ sheering for skin protection; Occupational Therapy: Current Status Upper Body Dressing Supervision Lower Body Dressing Mod Assist Bathing Mod Assist Toileting Max Asst Toilet Transfer Total Assist Shower Transfer Total Assist Eating Independent Rec Therapy: Current Status Summary of Assessment and RT assessment complete and pt. is aware of RT Clinical Impression services. Pt. is very engaged in leisure visits and has leisure material in his room. Treatment Goals Pt. will engage in leisure activities while on the unit. Treatment Plan Provide RT services and encourage involvement. Social Work: Current Status Discharge Plan return home with home care svs and family support Potential for Family Training pt's family are involved and supportive Anticipated Discharge Home Destination Discharge With home care svs and family support Nutrition: Current Status Monitoring pt eating well; self-limits obvious carb sources, such as bread, pasta, and rice. He does consume dairy and some starchy vegetables; otherwise, prefers meats and sandwiches without the bread/bun . He has peanuts and peanut butter at bedside, as he realizes the importance of protein for skin health and wound healing. Renal function appears to be wnl; glycemic control is presently good (hx slightly elevated BG and A1c, so his limitation of obvious carb sources is acceptable). He denies need for add'l snacks or supplements. Goals: Physical Therapy: Initial Goals Bed Mobility Assistance Min Assist Transfer Mobility Assistance Min Assist Occupational Therapy: Initial Goals Goals to be Completed in (Days 5-7 days ) Upper Body Bathing Routine Supervision/Set Up Lower Body Bathing Routine Moderate Assist Upper Body Dressing Routine Independent Lower Body Dressing Routine Moderate Assist Toilet Hygeine and Clothing Maximal Assist Management Routine Toilet Transfer Routine Total Assist Tub Transfer Routine Total Assist Functional Transfers for ADL Total Assist Grooming Routine Independent Feeding Routine Independent Nutrition: Goals Intervention Goals 1. adequate po intake to maintain lean body mass , hydration and to support wound healing without add'l wt gain 2. evidence of wound healing and pt will be without new skin breakdown 3. maintain regulated bowel pattern without c/o constipation (or diarrhea) 4. maintain serum glucose and electrolytes wnl Social Work: Goals Discharge Plan return home with home care svs and family support Potential for Family Training pt's family are involved and supportive Anticipated Discharge Home Destination Discharge With home care svs and family support Care Plan: Care Plan ADL's - Improve/Maintain Start: 10/17/17 15:00 Freq: DAILY@1200 Status: Active Target: Protocol: Activity Type Activity Date Activity User E-Sign Co-Sign Detail Recorded Client Recorded Date Recorded By Document 10/19/17 14:23 [id number] [id number] 10/19/17 14:23 [id number] 10/19/17 14:23 PMRU Outcome: ADL's/ADL Transfers Orders/Interventions Occupational Therapy Evaluation & Treatment Device Yes Patient to receive OT 5x/wk for 60-120 Therex min/day Self Care Management Group Therapy UE/LE ADL's with Assist Yes ADL Transfers with Assist Yes Toileting: Transfers,Clothing Management Yes ,Hygeine w/Assist Light Kitchen/Laundry w/Assist Yes Progression Toward Outcome/Goals Progressing Outcome/Goals Met Pt. continues to progress towards OT goals. Pt. agreeable to using AE this date to assist with LB dressing. Pt. continues to benefit from IADL training during tx session. Cardiovascular- Improve/Maintain Start: 10/17/17 22:18 Freq: DAILY@1200 Status: Active Target: Protocol: Activity Type Activity Date Activity User E-Sign Co-Sign Detail Recorded Client Recorded Date Recorded By Document 10/23/17 00:24 [id number] 10/23/17 00:26 [id number] 10/23/17 00:24 PMRU Outcome: Cardiovascular Vital Signs q Shift for 48hrs Then BID Yes Daily Weight Ordered No Current Cardiovascular Outcome/Goal Maintain/ Achieve Baseline HR, BP , Perfusion Progression Toward Outcome/Goal Progressing DVT Prophylaxis- Improve/Maintain Start: 10/17/17 22:18 Freq: DAILY@1200 Status: Active Target: Protocol: Activity Type Activity Date Activity User E-Sign Co-Sign Detail Recorded Client Recorded Date Recorded By Document 10/23/17 00:24 [id number] 10/23/17 00:26 [id number] 10/23/17 00:24 PMRU Outcome: DVT Prophylaxis Outcome/Goals Remains Free of DVT Complies with DVT Prophylaxis /Treatment TEDS Stockings on Every AM, Off at HS Progression Toward Outcome/Goals Progressing Discharge Planning - Improve/Maintain Start: 10/17/17 22:18 Freq: DAILY@1200 Status: Active Target: Protocol: Activity Type Activity Date Activity User E-Sign Co-Sign Detail Recorded Client Recorded Date Recorded By Document 10/23/17 00:24 [id number] [id number] 10/23/17 00:26 [id number] 10/23/17 00:24 PMRU Outcome: Discharge Planning Update Patient Family No Outcome/Goals Demonstrates Understanding of Discharge Plan Progression Toward Outcome/Goals Progressing Education-Improve/Maintain Start: 10/17/17 22:18 Freq: DAILY@1200 Status: Active Target: Protocol: Activity Type Activity Date Activity User E-Sign Co-Sign Detail Recorded Client Recorded Date Recorded By Document 10/23/17 00:24 [id number] [id number] 10/23/17 00:26 [id number] 10/23/17 00:24 PMRU Outcome: Education Outcome/Goals Demonstrate/ Verbalize Understanding of Written Discharge Instructions Progression Toward Outcome/Goals Progressing /GI-Improve/Maintain Start: 10/17/17 22:18 Freq: DAILY@1200 Status: Active Target: Protocol: Activity Type Activity Date Activity User E-Sign Co-Sign Detail Recorded Client Recorded Date Recorded By Document 10/23/17 00:24 [id number] 10/23/17 00:26 [id number] 10/23/17 00:24 PMRU Outcome: Genitourinary/ Gastrointestinal Genitourinary- Outcome/Goals Maintain/ Achieve Urinary Continence Gastrointestinal-Outcome/Goals Maintain/ Achieve Bowel Regularity in Accordance with Pt's Baseline Prevent Constipation Progression Toward Outcome/Goals - Not Progressing Progression Toward Outcome/Goals - GI Not Progressing Outcome/Goals Met Comment goins in place Mobility- Improve/Maintain Start: 10/17/17 22:18 Freq: DAILY@1200 Status: Active Target: Protocol: Activity Type Activity Date Activity User E-Sign Co-Sign Detail Recorded Client Recorded Date Recorded By Document 10/18/17 14:33 [id number] 10/18/17 14:33 [id number] 10/18/17 14:33 PMRU Outcome: Mobility Progression Toward Outcome/Goals Progressing Neurological- Improve/Maintain Start: 10/17/17 22:18 Freq: DAILY@1200 Status: Active Target: Protocol: Activity Type Activity Date Activity User E-Sign Co-Sign Detail Recorded Client Recorded Date Recorded By Document 10/23/17 00:24 [id number] [id number] 10/23/17 00:26 [id number] 10/23/17 00:24 PMRU Outcome: Neurological Weakness/Aphasia Weakness Weakness/Aphasia Comment paraplegia Outcome/Goals Maintain/ Achieve Baseline Neurological Status Prevent Avoidable Neurological Decline Progression Toward Outcome/Goals Progressing Pain/Comfort- Improve/Maintain Start: 10/17/17 22:18 Freq: DAILY@1200 Status: Active Target: Protocol: Activity Type Activity Date Activity User E-Sign Co-Sign Detail Recorded Client Recorded Date Recorded By Document 10/23/17 00:24 [id number] [id number] 10/23/17 00:26 [id number] 10/23/17 00:24 PMRU Outcome: Pain/Comfort Outcome/Goals Demonstrates Knowledge and Use of Available Comfort Measures Achieves Acceptable Comfort/Pain Level as Determined by Patient/Condit Progression Toward Outcome/Goals Progressing Outcome/Goals Met Comment pt declined interventions Safety- Improve/Maintain Start: 10/17/17 22:18 Freq: DAILY@1200 Status: Active Target: Protocol: Activity Type Activity Date Activity User E-Sign Co-Sign Detail Recorded Client Recorded Date Recorded By Document 10/23/17 00:24 [id number] 10/23/17 00:26 [id number] 10/23/17 00:24 PMRU Outcome: Safety Outcome/Goals Remain Free of Injury or Harm Prevent Falls/ Injury Progression Toward Outcome/Goals Progressing Skin- Improve/Maintain Start: 10/17/17 22:18 Freq: DAILY@1200 Status: Active Target: Protocol: Activity Type Activity Date Activity User E-Sign Co-Sign Detail Recorded Client Recorded Date Recorded By Document 10/23/17 00:24 [id number] [email or web address] 10/23/17 00:26 [id number] 10/23/17 00:24 PMRU Outcome: Skin Skin Risk Level High Skin Orders Dressing Change Air Mattress Multipodus Boot Heels Off Bed Turn/Position q2hr While in Bed Outcome/Goals Maintain/ Improve Skin Intergrity Free from Decubitus Progression Toward Outcome/Goals Progressing Medicine Note: Length of Stay: 3 days Anticipated Discharge Destination: Home Tentative Discharge Date: 10/26/17 Discharged to: Home
--- NOTE | 2017-10-23 16:25 | PN ---
Progress Note Date of Service: 10/23/17 Note: SHIMON SCHROEDER was visited. Therapy notes read and reviewed. He was discussed in interdisciplinary team rounds. He wants to go home om Sunday. That will be post op day 13. Will contact ortho about suture removal. Current Medications: Active Medications Generic Name Dose Route Start Last Admin Trade Name Freq PRN Reason Stop Dose Admin Acetaminophen 650 mg 10/17/17 13:06 Tylenol Tab* PO Q6H PRN FEVER/PAIN Docusate Sodium 100 mg 10/17/17 21:00 10/23/17 08:43 Colace Cap* PO Not Given BID WILLIAM Enoxaparin Sodium 40 mg 10/17/17 21:00 10/22/17 21:10 Lovenox(*) SUBCUT 40 mg Q24H WILLIAM Administration Hydrocortisone 1 applic 10/19/17 10:37 Hytone Cream 1%* TOPICAL QID PRN itching Magnesium Hydroxide 30 ml 10/17/17 13:06 Milk Of Magnesia Liq* PO Q6H PRN CONSTIPATION Polyethylene Glycol/Electrolytes 17 gm 10/18/17 09:00 10/23/17 08:43 Miralax* PO Not Given DAILY WILLIAM Senna 2 tab 10/17/17 13:06 Senokot Tab* PO BEDTIME PRN CONSTIPATION Tizanidine HCl 2 mg 10/20/17 10:26 Zanaflex Tab* PO BEDTIME PRN SPASMS Vital Signs: Vital Signs Temp Pulse Resp BP Pulse Ox 98.9 F 83 18 111/64 98 10/23/17 06:16 10/23/17 06:16 10/23/17 08:00 10/23/17 06:16 10/23/17 08:00 Exam: GEN: no acute distress. Alert and appropriate. LUNGS: Clear to auscultation bilaterally. HEART: regular rate and rhythm ABD: + bowel sounds, soft, non-tender, non-distended EXT: RLE in brace, edematous NEURO: No voluntary movement in legs. Sensation altered below chest Assessment/Plan: 1. Left Distal Femur fracture: S/P ORIF. PT/OT to work on ADLs and transfers. 2. Right Proximal Tibia Fracture: Had closed reduction. In hinged Knee brace AAT 3. T5 Paraplegia, MARLEN class B. Work on transfers, W/C mobilities, ADLs 4. Neurogenic Bladder and Bowel: Reyes. Trying to establish a bowel program. f/ u with urology. 5. S/P Myocutaneous Flap: Special Mattress. ROHO cushion. Dry dressing changes daily. Routine skin checks. Spencos on heels when in bed. Need to avoid shear to flap as it is still healing. Trapeze 6. Spasticity: Tizanidine prn, but he is unlikley to take. He won't take Baclofen 7. DVT Prophylaxis: Lovenox through November 11. Will need Lovenox teaching 8. Rash on back: hydrocortisone topical prn. 9. Advanced directives: full code. 10. Estimated LOS: until 10/30/17 pending weekly progress reviews with team. 10/23/17 16:25 10/23/17 16:27
[2017-10-23] MEDS: Enoxaparin(*) 40 MG/0.4 ML SYR SUBCUT SCH (21:17)
[2017-10-24] MEDS: Docusate CAP* 100 MG PO SCH ×2 (08:34→19:24)
[2017-10-24] MEDS: Polyethylene Glycol 3350* 17 GM PACKET PO SCH (08:35)
--- NOTE | 2017-10-24 19:55 | PN ---
Progress Note Date of Service: 10/24/17 Note: SHIMON SCHROEDER was visited. Therapy notes read and reviewed. He had some questions about removing the catheter and going back to [facility]. We again discussed going to Dr. Rosado, a urologist in [place], but he is not sure he wants to wait. Current Medications: Active Medications Generic Name Dose Route Start Last Admin Trade Name Freq PRN Reason Stop Dose Admin Acetaminophen 650 mg 10/17/17 13:06 Tylenol Tab* PO Q6H PRN FEVER/PAIN Docusate Sodium 100 mg 10/17/17 21:00 10/24/17 19:24 Colace Cap* PO Not Given BID WILLIAM Enoxaparin Sodium 40 mg 10/17/17 21:00 10/23/17 21:17 Lovenox(*) SUBCUT 40 mg Q24H WILLIAM Administration Hydrocortisone 1 applic 10/19/17 10:37 Hytone Cream 1%* TOPICAL QID PRN itching Magnesium Hydroxide 30 ml 10/17/17 13:06 Milk Of Magnesia Liq* PO Q6H PRN CONSTIPATION Polyethylene Glycol/Electrolytes 17 gm 10/18/17 09:00 10/24/17 08:35 Miralax* PO Not Given DAILY WILLIAM Senna 2 tab 10/17/17 13:06 Senokot Tab* PO BEDTIME PRN CONSTIPATION Tizanidine HCl 2 mg 10/20/17 10:26 Zanaflex Tab* PO BEDTIME PRN SPASMS Vital Signs: Vital Signs Temp Pulse Resp BP Pulse Ox 98.9 F 105 20 139/75 99 10/24/17 15:10 10/24/17 15:10 10/24/17 18:42 10/24/17 15:10 10/24/17 18:43 Exam: GEN: no acute distress. Alert and appropriate. LUNGS: Clear to auscultation bilaterally. HEART: regular rate and rhythm ABD: + bowel sounds, soft, non-tender, non-distended EXT: RLE in brace, edematous NEURO: No voluntary movement in legs. Sensation altered below chest Assessment/Plan: 1. Left Distal Femur fracture: S/P ORIF. PT/OT to work on ADLs and transfers. 2. Right Proximal Tibia Fracture: Had closed reduction. In hinged Knee brace AAT 3. T5 Paraplegia, MARLEN class B. Work on transfers, W/C mobilities, ADLs 4. Neurogenic Bladder and Bowel: Reyes. Trying to establish a bowel program. f/ u with urology. May return to [facility] 5. S/P Myocutaneous Flap: Special Mattress. ROHO cushion. Dry dressing changes daily. Routine skin checks. Spencos on heels when in bed. Need to avoid shear to flap as it is still healing. [place] 6. Spasticity: Tizanidine prn, but he is unlikley to take. He won't take Baclofen 7. DVT Prophylaxis: Lovenox through November 11. Will need Lovenox teaching 8. Rash on back: hydrocortisone topical prn. 9. Advanced directives: full code. 10. Estimated LOS: until 10/30/17 pending weekly progress reviews with team. 10/24/17 19:55
[2017-10-24] MEDS: Enoxaparin(*) 40 MG/0.4 ML SYR SUBCUT SCH (21:00)
[2017-10-25] MEDS: Polyethylene Glycol 3350* 17 GM PACKET PO SCH (09:21)
[2017-10-25] MEDS: Docusate CAP* 100 MG PO SCH ×2 (09:21→20:27)
[2017-10-25] MEDS: Enoxaparin(*) 40 MG/0.4 ML SYR SUBCUT SCH (20:26)
--- NOTE | 2017-10-25 22:17 | PN ---
Progress Note Date of Service: 10/25/17 Note: SHIMON SCHROEDER was visited. Therapy notes read and reviewed. He feels like he is ready for discharge tomorrow. We will remove goins and he can resume ICP. Will need to go back on Ditropan. Current Medications: Active Medications Generic Name Dose Route Start Last Admin Trade Name Freq PRN Reason Stop Dose Admin Acetaminophen 650 mg 10/17/17 13:06 Tylenol Tab* PO Q6H PRN FEVER/PAIN Docusate Sodium 100 mg 10/17/17 21:00 10/25/17 20:27 Colace Cap* PO Not Given BID WILLIAM Enoxaparin Sodium 40 mg 10/17/17 21:00 10/25/17 20:26 Lovenox(*) SUBCUT 40 mg Q24H WILLIAM Administration Hydrocortisone 1 applic 10/19/17 10:37 Hytone Cream 1%* TOPICAL QID PRN itching Magnesium Hydroxide 30 ml 10/17/17 13:06 Milk Of Magnesia Liq* PO Q6H PRN CONSTIPATION Polyethylene Glycol/Electrolytes 17 gm 10/18/17 09:00 10/25/17 09:21 Miralax* PO Not Given DAILY WILLIAM Senna 2 tab 10/17/17 13:06 Senokot Tab* PO BEDTIME PRN CONSTIPATION Vital Signs: Vital Signs Temp Pulse Resp BP Pulse Ox 98.8 F 77 16 126/65 99 10/25/17 16:18 10/25/17 16:18 10/25/17 16:18 10/25/17 16:18 10/25/17 16:18 Exam: GEN: no acute distress. Alert and appropriate. LUNGS: Clear to auscultation bilaterally. HEART: regular rate and rhythm ABD: + bowel sounds, soft, non-tender, non-distended EXT: RLE in brace, edematous NEURO: No voluntary movement in legs. Sensation altered below chest Assessment/Plan: 1. Left Distal Femur fracture: S/P ORIF. PT/OT to work on ADLs and transfers. 2. Right Proximal Tibia Fracture: Had closed reduction. In hinged Knee brace AAT 3. T5 Paraplegia, MARLEN class B. Work on transfers, W/C mobilities, ADLs 4. Neurogenic Bladder and Bowel: Goins. Trying to establish a bowel program. f/ u with urology. Will d/c goins, return to ICP 5. S/P Myocutaneous Flap: Special Mattress. VASQUEZ cushion. Routine skin checks. Spencos on heels when in bed. Bogdan 6. Spasticity: Tizanidine prn, but he is not taking. Will d/c. He won't take Baclofen 7. DVT Prophylaxis: Lovenox through November 11. Will need Lovenox teaching 8. Rash on back: hydrocortisone topical prn. 9. Advanced directives: full code. 10. Disposition: Home in am. 10/25/17 22:17
[2017-10-26 06:30] VITALS: BP 112/58
[2017-10-26 06:46] LABS: ABS Basophils 0 10^3/ul (0-0.2); ABS Eosinophils 0.2 10^3/ul (0-0.6); ABS Lymphocytes 1.2 10^3/ul (1.0-4.8); ABS Monocytes 0.6 10^3/ul (0-0.8); ABS Neutrophils 4.9 10^3/ul (1.5-7.7); ABS Nucleated RBC 0 10^3/ul; Eosinophil % 3.1 % (0-6); Hematocrit 31 % (42-52); Hemoglobin 10.4 g/dl (14.0-18.0); Lymphocyte % 17.5 % (25-47); Mean Corpuscular HGB Conc 34 g/dl (31-36); Mean Corpuscular Hemoglobin 31 pg (27-31); Mean Corpuscular Volume 90 fL (80-94); Mean Platelet Volume 6.2 um3 (7.4-10.4); Nucleated Red Blood Cells % 0; Platelet Count 753 10^3/ul (150-450); Red Cell Distribution Width 16 % (10.5-15); White Blood Count 6.9 10^3/ul (3.5-10.8)
[2017-10-26 07:04] LABS: EGFR Non-African American 180.6 (>60)
[2017-10-26] MEDS ORDERED: Oxybutynin XL TAB* 5 MG PO SCH (09:00)
[2017-10-26] MEDS: Polyethylene Glycol 3350* 17 GM PACKET PO SCH (09:50)
[2017-10-26] MEDS: Docusate CAP* 100 MG PO SCH (09:50)
--- NOTE | 2017-10-27 12:21 | DS ---
CC: Zoran Jesnen NP * DISCHARGE SUMMARY: DATE OF ADMISSION: 10/17/17 DATE OF DISCHARGE: 10/26/17 DISCHARGE DIAGNOSES: 1. Left distal femur fracture. 2. Right proximal tibia fracture. 3. T5 MARLEN class B paraplegia. 4. Right femur fracture, remote. 5. Traumatic brain injury, remote. HISTORY OF ILLNESS AND HOSPITAL COURSE: For complete history of the events leading up to his rehab stay, please see the history and physical dictated by me on 10/17/17. While on the rehab unit, the patient remained fairly stable from a medical point of view. He had 2 small areas along the suture line of his recent myocutaneous flap, which appeared to be opening up. One was about 0.5 mm, the other perhaps 1 mm. These healed during his rehab stay. The patient had small areas of ulceration on his heels that were slowly healing. Otherwise, he was medically stable. The patient worked with physical therapy and occupational therapy and made good gains with both disciplines. With physical therapy, at the time of admission, the patient was total assistance for transfers. He was unable to propel his wheelchair. His had brought in his power wheelchair for him to use while in the rehab unit along with a Roho cushion. By the time of discharge, the patient was min assist for transfers, independent in using his power wheelchair to ambulate. The patient remained in a hinged knee brace on the right and was nonweightbearing bilaterally. With occupational therapy at the time of admission, the patient max assist for lower body dressing, independent upper body dressing. He had a Reyes catheter and was dependent for bowel management. At the time of discharge , he was set-up for upper body dressing, assistance for lower dressing, was independent with straight cathing for bladder management, required total assistance for bowel management. The patient's came in for training prior to discharge. The patient was discharged home on October 26, 2017. DISCHARGE DIET: Regular. DISCHARGE MEDICATIONS: 1. Lovenox 40 mg subcutaneously daily for 15 days. 2. Vitamin C 500 mg daily. 3. Ditropan 5 mg twice a day. 4. Viagra as needed. SERVICES AFTER DISCHARGE: Through visiting nurse service, he will have home nursing, home physical therapy, home occupational therapy, and a home health aide. FOLLOWUP: Follow up with Dr. Alonzo Kelley in 1 to 2 weeks. He will also follow up with his primary care provider, Zoran Jensen NP. [id number]/CPS #: [id number] DAVID
== END 2017-10-26 11:35 | disposition home health service (06) | DRG 560 ==
LOC: PMRU 12:10
PROVIDERS: ADMIT Physical Medicine & Rehabilitation; ATTEND Physical Medicine & Rehabilitation
PROC: F07Z5ZZ Bed Mobility Treatment (ICD-10-PCS; principal; 2017-10-17)
PROC: F07Z8ZZ Transfer Training Treatment (ICD-10-PCS; 2017-10-17)
PROC: F07Z4ZZ Wheelchair Mobility Treatment (ICD-10-PCS; 2017-10-17)
PROC: F08Z0ZZ Bathing/Showering Techniques Treatment (ICD-10-PCS; 2017-10-17)
PROC: F08Z1ZZ Dressing Techniques Treatment (ICD-10-PCS; 2017-10-17)
PROC: F08Z3ZZ Feeding/Eating Treatment (ICD-10-PCS; 2017-10-17)
DX: S72.402D Unspecified fracture of lower end of left femur, subsequent encounter for closed fracture with routine healing (principal); G82.20 Paraplegia, unspecified; K59.2 Neurogenic bowel, not elsewhere classified; S82.101D Unspecified fracture of upper end of right tibia, subsequent encounter for closed fracture with routine healing; V00.81 Accident with wheelchair (powered); L89.622 Pressure ulcer of left heel, stage 2; N31.9 Neuromuscular dysfunction of bladder, unspecified; R25.2 Cramp and spasm; L25.1 Unspecified contact dermatitis due to drugs in contact with skin; T49.0X5A Adverse effect of local antifungal, anti-infective and anti-inflammatory drugs, initial encounter; Y92.230 Patient room in hospital as the place of occurrence of the external cause; T81.89XA Other complications of procedures, not elsewhere classified, initial encounter; X58.XXXA Exposure to other specified factors, initial encounter; Z87.820 Personal history of traumatic brain injury; Z99.3 Dependence on wheelchair; Z79.01 Long term (current) use of anticoagulants; Z79.1 Long term (current) use of non-steroidal anti-inflammatories (NSAID)
CPT/HCPCS: 36415; 80053; 85025; A9270-GY; J1650

== ENCOUNTER 2019-05-27 09:32 | Emergency (ER) | payer OTHER, MEDICARE ==
--- NOTE | 2019-05-27 10:27 | UC ---
General HPI - HPI Summary HPI Summary: Pleasant 43 yo gentleman c/o last couple weeks progressive cough, subj fever. Is concerned that he is not able to cough up the sputum very well, d/t hx paraplegia and hx L lat rib fx's. Concerned that he may be getting lower resp infection. No sob / new cp. No palpitations. Does have high bp, ? cold meds? No hx asthma perse, used inhaler a long time ago. Nonsmoker. No GI issues. No change in issues. No rash. No sinus / ear / throat c/o's. - History of Current Complaint Chief Complaint: UCRespiratory Stated Complaint: CHEST CONGESTION Time Seen by Provider: 05/27/19 10:27 Hx Obtained From: Patient Pain Intensity: 8 - Allergy/Home Medications Allergies/Adverse Reactions: Allergies Allergy/AdvReac Type Severity Reaction Status Date / Time No Known Allergies Allergy Verified 05/27/19 09:52 Home Medications: Home Medications Chlorthalidone TAB* [Hygroton TAB*] 1 tab PO DAILY 05/27/19 [History Confirmed 05/27/19] Mirabegron (NF) [Myrbetriq (NF)] 1 tab PO DAILY 05/27/19 [History Confirmed 04/05] oxyCODONE/Acetamin 5/325 MG* [Percocet 5/325 TAB*] 1 tab PO DAILY 05/27/19 [ History Confirmed 05/27/19] PMH/Surg Hx/FS Hx/Imm Hx Previously Healthy: Yes - Surgical History Surgical History: Yes Surgery Procedure, Year, and Place: DEBRIS R HIP, ORIF HIP (KENN REMOVED) (STILL SOME METAL IN THE BONE);. R KNEE JUL 2011,. R KNEE MAR 2012,. L KNEE (NO HARDWARE),. DEVIATED SEPTUM;. TONSILS;. APPENDECTOMY;. WISDOM TEETH;. REPAIR GLUTEUS MEDIUS MUSCLE;. TITANIUM PLATES/SCREWS IN LEFT ARM 2017;. LEFT FEMUR ([place]),. FUSED VERTEBRAE FROM T-5-T9 2016; - Family History Known Family History: Positive: Hypertension - Social History Alcohol Use: Occasionally Alcohol Amount: NO ETOH IN PAST 7 WEEKS Substance Use Type: None Smoking Status (MU): Former Smoker Type: Pipe Have You Smoked in the Last Year: No - Immunization History Most Recent Influenza Vaccination: none Most Recent Pneumonia Vaccination: none Review of Systems All Other Systems Reviewed And Are Negative: Yes Constitutional: Positive: Other - see hpi Skin: Positive: Negative Eyes: Positive: Negative ENT: Positive: Negative Respiratory: Positive: Cough - see hpi Cardiovascular: Positive: Negative Gastrointestinal: Positive: Negative Genitourinary: Positive: Negative Motor: Positive: Negative - no new issues, see hpi Neurovascular: Positive: Negative - no new issues, see hpi Musculoskeletal: Positive: Negative Neurological: Positive: Negative Psychological: Positive: Negative Is Patient Immunocompromised?: No Physical Exam Triage Information Reviewed: Yes Appearance: Well-Appearing - sitting up in chair, nad, Well-Nourished Vital Signs: Initial Vital Signs Temp 98.8 F 05/27/19 09:49 Pulse 77 05/27/19 09:49 Resp 16 05/27/19 09:49 BP 153/105 05/27/19 09:49 Pulse Ox 98 05/27/19 09:49 Vital Signs Reviewed: Yes Eye Exam: Normal ENT Exam: Normal Neck exam: Normal Neck: Positive: Supple, Nontender, No Lymphadenopathy Respiratory Exam: Other - + ronchorus cough, bs equal. Occas exp wheeze. No distress. Cardiovascular Exam: Normal Cardiovascular: Positive: RRR, Pulses Normal, Brisk Capillary Refill Abdominal Exam: Normal Abdomen Description: Positive: Nontender Musculoskeletal Exam: Other - moves upper ext's well, BLE not examined, in chair Neurological Exam: Other - no acute issues, hx paraplegia Psychological Exam: Normal - conversing easily and appropriately. NAD. Skin Exam: Normal - no visible nor reported rash. Nondiaphoretic. Course/Dx - Course Course Of Treatment: bp 153/105 at triage. Reviewed with pt, including need for recheck. 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 Will start ciprofloxacin (has been on ciprofloxacin in the past without issues, occas takes oxycodone, but has not had problems in the past with ciprofloxacin) . Does not have a nebulizer at home. But plans to acquire one. As such, rx albuterol inhaler (and albuterol solution), e-scribed. If worse or new issues, then will need recheck, possibly cxr. Questions as posed answered to the best of my ability. - Diagnoses Provider Diagnosis: Bronchitis Discharge ED - Sign-Out/Discharge Documenting (check all that apply): Patient Departure All imaging exams completed and their final reports reviewed: No Studies - Discharge Plan Condition: Stable Disposition: HOME Prescriptions: Albuterol 2.5MG/3ML (0.083%)* [Ventolin 2.5 MG/3 ML NEB.EVERETT*] 2.5 mg INH Q6H # 25 vial Albuterol HFA INHALER* [Ventolin HFA Inhaler*] 1 - 2 puff INH Q4H PRN #1 mdi PRN Reason: Wheezing Ciprofloxacin HCl [Cipro] 500 mg PO BID #20 tablet Patient Education Materials: Acute Bronchitis (ED) Referrals: Clementine Villasenor MD [Primary Care Provider] - Additional Instructions: Hydrate. Please have your blood pressure rechecked by your doctor in the next 2 weeks. Please seek medical attention sooner if worse or new symptoms. - Billing Disposition and Condition Condition: STABLE Disposition: Home
[2019-05-27 10:58] VITALS: BP 170/107
== END 2019-05-27 11:28 | disposition home or self-care (01) ==
LOC: UCEAST 09:32
DX: J40 Bronchitis, not specified as acute or chronic (principal); Z87.891 Personal history of nicotine dependence
CPT/HCPCS: 99212; G0463